=== PATIENT | female | born 1960 | race Caucasian/White ===

== ENCOUNTER 2020-08-01 15:12 | Outpatient (CLI) | payer OTHER, SELFPAY ==
--- NOTE | ~2020-08-01 | MM_ITS ---
EXAMINATION: MM screening tito BI w chelly HISTORY: Screening TECHNIQUE: Craniocaudal and mediolateral oblique 3-D tomosynthesis images were obtained and synthetic 2-D images were generated. CAD analysis was submitted and interpreted. COMPARISON: Comparison to multiple prior studies sequentially, with oldest reviewed study dated 12/03. BREAST PARENCHYMAL COMPOSITION: There are scattered areas of fibroglandular density. FINDINGS: There is no evidence of suspicious mass, calcification, or architectural distortion to sugg est malignancy in either breast. There has been no suspicious interval change. IMPRESSION: 1. No mammographic evidence of malignancy. 2. Recommend routine screening mammography in one year. BI-RADS Category 1: Negative Reviewed, dictated and finalized at location A.
== END 2020-08-01 15:13 | disposition home or self-care (01) ==
LOC: ANHIMG 15:18
PROVIDERS: PCP Emergency Medicine; Visit Provider Emergency Medicine
DX: Z12.31 Encounter for screening mammogram for malignant neoplasm of breast (principal)
CPT/HCPCS: 77063; 77067

== ENCOUNTER 2021-07-11 10:25 | Emergency (ER) | payer OTHER, SELFPAY ==
[2021-07-11 10:34] VITALS: BP 147/79; PULSE 90; RESP 16; TEMP 36.8; O2SAT 97
--- NOTE | 2021-07-11 10:41 | ED.URI ---
HPI - URI/Sore Throat General Chief Complaint: Upper Respiratory Infection Stated Complaint: SINUS CONGESTION Time Seen by Provider: 07/11/21 10:44 Source: patient, RN notes reviewed and old records reviewed Mode of arrival: ambulatory Limitations: no limitations History of Present Illness HPI Narrative: 61 year old female who presents to [facility] care with complaints of headache and sinus congestion for the past 1 month. Patient stats that she has not taken any OTC medications for her symptoms states that she is afraid to take anything OTC with the other medications she takes. Patient states that she is unsure of any fevers has had some chills and sweats, sinus congestion and drainage with pressure to her face, behind her eyes and in her forehead. Patient states that she has COPD and has cough but reports that it is not any worse than usual, continues to use tobacco daily of 1 pack of cigarettes per day. Patient denies any acute shortness of breath or any episodes of wheezing, respirations even and nonlabored. Patient reports that she has had COVID immunizations and Booster, no flu shot taken. MD elicited complaint: rhinorrhea, nasal congestion and other (headache, facial pressure) Pertinent past history: COPD Onset (ago): month(s) (1) Description of mucous: clear Able to tolerate fluids by mouth: Yes Associated symptoms: chills, myalgias, headache, rhinorrhea, nasal congestion and cough Treatments prior to arrival: none Related Data Home Medications Medication Instructions Recorded Confirmed atorvastatin 07/11/21 duloxetine mg PO 07/11/21 famotidine 07/11/21 gabapentin 07/11/21 levothyroxine 07/11/21 oxybutynin chloride 07/11/21 pantoprazole PO 07/11/21 pentosan polysulfate sodium mg 07/11/21 [Elmiron] Allergies Allergy/AdvReac Type Severity Reaction Status Date / Time No Known Allergies Allergy Unverified 01/01/15 15:41 Review of Systems Review of Systems: CONSTITUTIONAL: Unknown if fever, positive for intermittent chills, or sweats. EYES: Denies visual changes, redness, or discharge. ENT: Positive for rhinorrhea, congestion, no sore throat, or otalgia. CARDIOVASCULAR: Denies chest pain, palpitations, or edema. RESPIRATORY: Positive dry cough denies any acute dyspnea. GASTROINTESTINAL: Denies abdominal pain, nausea, vomiting, or diarrhea. GENITOURINARY: Denies dysuria or hematuria. SKIN: Denies rash or itching. MUSCULOSKELETAL: Reports chronic back pain, joint pain, or myalgia. NEUROLOGIC: Positive for headache, reports no numbness, or weakness. or any dizziness. PSYCHIATRIC: Positive for history of anxiety or depression. All systems reviewed & are unremarkable except as noted in HPI and below PMFSH Past Medical History Medical History (Updated 07/11/21 @ 11:16 by Felicity Dyson NP) COPD (chronic obstructive pulmonary disease) Fibromyalgia GERD (gastroesophageal reflux disease) Hyperlipidemia Hypothyroid Interstitial cystitis Surgical History Surgical History (Updated 07/11/21 @ 11:16 by Felicity Dyson NP) Hx of tonsillectomy Family History Family History Sibling Family history of thyroid disease Hypertension Other Family history of arthritis Family history of cardiovascular disease Social History Social History (Updated 07/11/21 @ 11:17 by Felicity Dyson NP) Smoking packs per day: 1 Smoking cigarettes per day: 20.0 Smoking status: Current every day smoker Tobacco type: cigarettes Alcohol intake: current Substance use: never Living arrangements: with family Gender identity (if verbalized by the patient): Female Comments At time of signature, agree with nursing past medical, surgical, social and family history. There is no relevant family history pertinent to the presenting complaint Exam Narrative: GENERAL: Well-appearing, well-nourished, and in no acute distress. HEAD: Normocephalic, a
== END 2021-07-11 11:10 | disposition home or self-care (01) ==
PROVIDERS: Emergency Provider Registered Nurse
DX: J01.40 Acute pansinusitis, unspecified (principal); F17.210 Nicotine dependence, cigarettes, uncomplicated; J44.9 Chronic obstructive pulmonary disease, unspecified; M79.7 Fibromyalgia; K21.9 Gastro-esophageal reflux disease without esophagitis; E78.5 Hyperlipidemia, unspecified; E03.9 Hypothyroidism, unspecified
CPT/HCPCS: 99213; G0463

== ENCOUNTER 2021-07-26 12:15 | Emergency (ER) | payer OTHER, SELFPAY ==
[2021-07-26 12:19] VITALS: BP 133/73; PULSE 77; RESP 16; TEMP 36.7; O2SAT 100
--- NOTE | 2021-07-26 12:30 | ED.URI ---
HPI - URI/Sore Throat General Chief Complaint: Upper Respiratory Infection Stated Complaint: Sinus headache. Time Seen by Provider: 07/26/21 12:30 Source: patient, RN notes reviewed and old records reviewed Mode of arrival: ambulatory Limitations: no limitations History of Present Illness HPI Narrative: 61 year old female who presents to [facility] care with complaints of continued sinus pressure, drainage and also headache pain. She reports that she completed antibiotic that was ordered for sinusitis on the 11 of July but has not taken any OTC medication of Zyrtec,Claritin or any decongestant that was recommended prior visit. Patient states that she has not taken any Tylenol or Ibuprofen either for her headache pain, denies any fevers, chills or sweats, or any body aches. Patient has been vaccinated for COVID and has had Booster but no flu shot. MD elicited complaint: rhinorrhea, nasal congestion, sinus pain and other (frontal headache) Treatments prior to arrival: other (completed oral antibiotic) Related Data Home Medications Medication Instructions Recorded Confirmed atorvastatin 40 mg PO DAILY 07/11/21 07/26/21 duloxetine 30 mg PO DAILY 07/11/21 07/26/21 famotidine 40 mg PO DAILY 07/11/21 07/26/21 gabapentin 600 mg PO BID 07/11/21 07/26/21 levothyroxine 100 mcg PO DAILY 07/11/21 07/26/21 oxybutynin chloride 5 mg PO DAILY 07/11/21 07/26/21 pantoprazole 40 mg PO DAILY 07/11/21 07/26/21 pentosan polysulfate sodium 100 mg PO DAILY 07/11/21 07/26/21 [Elmiron] Allergies Allergy/AdvReac Type Severity Reaction Status Date / Time No Known Allergies Allergy Verified 07/26/21 12:19 Review of Systems Review of Systems: CONSTITUTIONAL: Denies fever, chills, or sweats. EYES: Denies visual changes, redness, or discharge. ENT: Positive for rhinorrhea, congestion,no sore throat, or otalgia. CARDIOVASCULAR: Denies chest pain, palpitations, or edema. RESPIRATORY: Positive for dry cough denies any acute dyspnea. GASTROINTESTINAL: Denies abdominal pain, nausea, vomiting, or diarrhea. GENITOURINARY: Denies dysuria or hematuria. SKIN: Denies rash or itching. MUSCULOSKELETAL: Denies back pain, joint pain, or myalgia. NEUROLOGIC: Positive for frontal headache, no numbness, or weakness. PSYCHIATRIC: Positive for history of anxiety or depression. All systems reviewed & are unremarkable except as noted in HPI and below PMFSH Past Medical History Medical History COPD (chronic obstructive pulmonary disease) Fibromyalgia GERD (gastroesophageal reflux disease) Hyperlipidemia Hypothyroid Interstitial cystitis Surgical History Surgical History Hx of tonsillectomy Family History Family History Sibling Family history of thyroid disease Hypertension Other Family history of arthritis Family history of cardiovascular disease Social History Social History Smoking packs per day: 1 Smoking cigarettes per day: 20.0 Smoking status: Current every day smoker Tobacco type: cigarettes Alcohol intake: current Substance use: never Gender identity (if verbalized by the patient): Female Comments At time of signature, agree with nursing past medical, surgical, social and family history. There is no relevant family history pertinent to the presenting complaint Exam Narrative: GENERAL: Well-appearing, well-nourished, and in no acute distress. HEAD: Normocephalic, atraumatic. EYES: PERRLA and EOMI. ENT: Nares red with clear rhinorrhea no epistaxis. Mucous membranes moist.TM's normal with goodlight reflex, throat pink with no lesions or exudates or tonsil enlargement, some clear nasal drainage in the back of her throat with some stated sinus pressure and headache NECK: Supple. no lymphadenopathy CHEST: Clear to
== END 2021-07-26 13:02 | disposition home or self-care (01) ==
PROVIDERS: Emergency Provider Registered Nurse
DX: J06.9 Acute upper respiratory infection, unspecified (principal); F17.210 Nicotine dependence, cigarettes, uncomplicated; J44.9 Chronic obstructive pulmonary disease, unspecified; M79.7 Fibromyalgia; K21.9 Gastro-esophageal reflux disease without esophagitis; E78.5 Hyperlipidemia, unspecified; E03.9 Hypothyroidism, unspecified
CPT/HCPCS: 99213; G0463

== ENCOUNTER 2022-05-16 14:26 | Outpatient (CLI) | payer OTHER, SELFPAY ==
[2022-05-16 15:45] LABS: Influenza A QL RT-PCR Negative (Negative); Influenza B QL RT-PCR Negative (Negative); RSV RNA, RT-PCR Negative (Negative); SARS-CoV-2 RNA PCR Negative
== END 2022-05-16 14:27 | disposition home or self-care (01) ==
PROVIDERS: PCP Emergency Medicine; Visit Provider Emergency Medicine
DX: R05.9 Cough, unspecified (principal); Z20.822 Contact with and (suspected) exposure to COVID-19
CPT/HCPCS: 87637

== ENCOUNTER 2022-06-11 15:05 | Outpatient (CLI) | payer OTHER, SELFPAY ==
[2022-06-11 20:19] LABS: Hemoglobin A1C 5.3 % (<5.7)
[2022-06-11 20:24] LABS: Alanine Aminotransferase 19 U/L (6-35); Albumin Level 4.4 g/dL (3.5-5.1); Alkaline Phosphatase 102 U/L (38-126); Anion Gap 4 mmol/L (8-16); Aspartate Amino Transferase 27 U/L (14-36); Bilirubin,Total 0.5 mg/dL (0.2-1.3); Blood Urea Nitrogen 16 mg/dL (7-17); Calcium 10.6 mg/dL (8.4-10.2); Carbon Dioxide 29 mmol/L (22-30); Chloride 103 mmol/L (98-107); Cholesterol 325 mg/dL (0-200); Estimated Glomerular Filt Rate 56; Glucose 90 mg/dL (65-110); HDL Direct 54 mg/dL; Potassium 3.7 mmol/L (3.4-5.0); Sodium 136 mmol/L (137-145); Triglycerides 133 mg/dL (<150)
[2022-06-11 20:35] LABS: LDL Cholesterol Direct 190 mg/dL
[2022-06-11 20:45] LABS: Free T4 Free Thyroxine 0.86 ng/mL (0.78-2.19)
[2022-06-11 21:15] LABS: Basophils Absolute Auto 0.1 K/mm3 (0.0-0.1); Basophils Percent Auto 0.9 % (0.2-1.2); Eosinophils Absolute Auto 0.3 K/mm3 (0-0.3); Eosinophils Percent Auto 2.8 % (0-4.4); Hematocrit 43.1 % (37.0-47.0); Hemoglobin 13.5 g/dL (12.0-15.0); Immature Granulocyte Absolute 0.06 K/mm3 (0.00-0.031); Immature Granulocyte Percent A 0.6 % (0-0.5); Lymphocytes Absolute Auto 1.87 K/mm3 (0.9-3.2); Mean Corpuscular HGB Conc 31.3 g/dl (32-36); Mean Corpuscular Volume 89.4 fl (80-100); Mean Platelet Volume 10.8 fl (7.4-10.4); Monocytes Absolute Auto 0.9 K/mm3 (0.1-0.6); Monocytes Percent Auto 8.6 % (2.6-8.5); Neutrophils Absolute Auto 6.7 K/mm3 (1.3-6.7); Neutrophils Percent Auto 68.1 % (45.5-73.1); Platelet Count Result 495 k/mm3 (150-375); Red Blood Count 4.82 M/mm3 (4.2-5.4); White Blood Count 9.9 K/mm3 (4.5-10.0)
== END 2022-06-11 15:06 | disposition home or self-care (01) ==
LOC: ANHGOSHLAB 15:07
PROVIDERS: PCP Emergency Medicine; Visit Provider Emergency Medicine
DX: E78.5 Hyperlipidemia, unspecified (principal); E03.9 Hypothyroidism, unspecified; F17.200 Nicotine dependence, unspecified, uncomplicated
CPT/HCPCS: 36415; 80053; 80061; 83036; 84439; 84443; 85025

== ENCOUNTER 2022-07-02 13:31 | Outpatient (CLI) | payer OTHER, SELFPAY ==
--- NOTE | ~2022-07-02 | CT_ITS ---
EXAMINATION: CT sinus wo con DATE: 07/02/2022 13:48 INDICATION: Sinus headache TECHNIQUE: Computed tomography (CT) of the paranasal sinuses was performed without intravenous contra st. The dose-length product (DLP) was 261.91 mGy-cm. Iterative reconstruction was used. COMPARISON: None FINDINGS: There is an approximately 6.9 x 6.6 cm partially calcified extra-axial mass in the right fr ontal region which exerts mass effect on right frontal lobe, the right lateral ventricle, and partial ly erodes into the medial aspect of the right orbit. There is normal development and pneumatization o f the paranasal sinuses. The frontal, sphenoid, ethmoid, and maxillary sinuses are clear. The bilater al ostiomeatal complexes are patent. Visualized soft tissues are unremarkable. IMPRESSION: 1. 6.9 cm partially calcified extra-axial mass in the right frontal region, possible meningioma. Furt her evaluation by MRI without and with contrast is recommended. Reviewed, dictated and finalized at location L. CLERK IMPRESSION: 1. 6.9 cm partially calcified extra-axial mass in the right frontal region, pos sible meningioma. Further evaluation by MRI without and with contrast is recomm ended.
--- NOTE | ~2022-07-02 | CT_ITS ---
EXAMINATION:CT lung screening DATE: 07/02/2022 13:48 INDICATION: Tobacco abuse. Current smoker with 35 pack year history. TECHNIQUE: Computed tomography (CT) of the chest was performed without intravenous contrast. Automate d exposure control and iterative reconstruction technique were employed. The dose-length product (DLP ) was 57.70 mGy-cm. COMPARISON: Chest CT 11/27/2018, CT abdomen 05/28/2006 FINDINGS: There is moderate emphysema. There is a 3 mm nodule in right upper lobe. There is mild scar ring at the lung apices. There is mild dependent atelectasis bilaterally. No pleural effusion. The he art size is normal. No pericardial effusion. There are cysts in the kidneys measuring up to 3.8 cm on the right. There is a 1.3 cm mass in right kidney measuring soft tissue attenuation. There is mild t horacic spondylosis. IMPRESSION: 1. Lung-RADS category 2: Benign appearance or behavior. Continue annual screening with noncontrast lo w-dose chest CT in 12 months. 2. 1.3 cm right kidney mass, which may be a hemorrhagic cyst or a neoplasm. Abdomen CT without and wi th contrast is recommended. Reviewed, dictated and finalized at location A. RDING ARTIST IMPRESSION: 1. Lung-RADS category 2: Benign appearance or behavior. Continue annual screeni ng with noncontrast low-dose chest CT in 12 months. 2. 1.3 cm right kidney mass, which may be a hemorrhagic cyst or a neoplasm. Abd omen CT without and with contrast is recommended.
== END 2022-07-02 13:32 | disposition home or self-care (01) ==
LOC: ANHIMG 13:32
PROVIDERS: PCP Emergency Medicine; Visit Provider Emergency Medicine
DX: Z12.2 Encounter for screening for malignant neoplasm of respiratory organs (principal); F17.210 Nicotine dependence, cigarettes, uncomplicated; R51.9 Headache, unspecified
CPT/HCPCS: 70486; 71271

== ENCOUNTER 2022-07-16 12:02 | Outpatient (CLI) | payer OTHER, SELFPAY ==
--- NOTE | ~2022-07-16 | MR_ITS ---
MRI of the brain Clinical History: Frontal mass Technique: Axial and sagittal T1-weighted images were acquired. These were followed by axial T2-weigh beverley, diffusion weighted, gradient, and FLAIR images. Following intravenous administration of 12 cc Mu ltiHance gadolinium, T1-weighted fat-sat imaging was performed in the axial, coronal, and sagittal pl anes. Findings: There is a 7.2 x 6.5 x 7.9 cm extra-axial mass in the right frontal region, T1 hypointense, mildly T2 hyperintense, with extensive heterogeneous postcontrast enhancement. Lesion is most compat ible with large meningioma. There is extensive surrounding vasogenic edema. There is marked mass effe ct with marked compression of the right lateral ventricle, and leftward midline shift in the frontal region of up to 2.8 cm. No other parenchymal abnormality seen. No acute infarct or acute intracranial hemorrhage seen. Possib le small amount of calcification within the mass. Orbits are unremarkable. Paranasal sinuses and mastoid air cells are clear. IMPRESSION: 7.2 x 6.5 x 7.9 cm right frontal region meningioma. There is surrounding vasogenic edema and marked m ass effect, with severe compression of right lateral ventricle and leftward midline shift in the fron bo region of up to 2.8 cm. Reviewed, dictated and finalized at location M. EL PLATER IMPRESSION: 7.2 x 6.5 x 7.9 cm right frontal region meningioma. There is surrounding vasoge mellissa edema and marked mass effect, with severe compression of right lateral vent ricle and leftward midline shift in the frontal region of up to 2.8 cm.
== END 2022-07-16 12:03 | disposition home or self-care (01) ==
PROVIDERS: PCP Emergency Medicine; Visit Provider Emergency Medicine
DX: D32.9 Benign neoplasm of meninges, unspecified (principal); R93.0 Abnormal findings on diagnostic imaging of skull and head, not elsewhere classified
CPT/HCPCS: 70553; A9577

== ENCOUNTER 2022-09-16 14:33 | Outpatient (CLI) | payer OTHER, SELFPAY ==
[2022-09-16 18:15] LABS: Parathyroid Intact 80.6 pg/mL (7.5-53.5)
[2022-09-16 18:23] LABS: Erythrocyte Sedimentation Rate 125 mm/hr (0-20)
[2022-09-16 18:33] LABS: CRP 2.9 mg/dL (<1.0); Lactate Dehydrogenase 172 U/L (120-246)
[2022-09-16 18:45] LABS: Alanine Aminotransferase 17 U/L (6-35); Albumin Level 3.9 g/dL (3.5-5.1); Alkaline Phosphatase 104 U/L (38-126); Anion Gap 6 mmol/L (8-16); Aspartate Amino Transferase 25 U/L (14-36); Bilirubin,Total 0.4 mg/dL (0.2-1.3); Blood Urea Nitrogen 14 mg/dL (7-17); Carbon Dioxide 26 mmol/L (22-30); Chloride 102 mmol/L (98-107); Estimated Glomerular Filt Rate 56; Glucose 82 mg/dL (65-110); Potassium 3.9 mmol/L (3.4-5.0); Sodium 134 mmol/L (137-145)
[2022-09-25 19:27] LABS: Parathyroid Hormone Related Pr 6 pg/mL (11-20)
== END 2022-09-16 14:34 | disposition home or self-care (01) ==
LOC: ANHGOSHLAB 14:35
PROVIDERS: PCP Emergency Medicine; Visit Provider Nurse Practitioner Family
DX: E83.52 Hypercalcemia (principal); F17.200 Nicotine dependence, unspecified, uncomplicated; R53.82 Chronic fatigue, unspecified; E87.1 Hypo-osmolality and hyponatremia; N17.9 Acute kidney failure, unspecified
CPT/HCPCS: 36415; 80053; 82310; 83519; 83615; 83970; 85652; 86140

== ENCOUNTER 2022-09-27 11:51 | Outpatient (CLI) | payer OTHER, SELFPAY ==
[2022-09-27 13:09] LABS: Free T4 Free Thyroxine 1.02 ng/mL (0.78-2.19)
== END 2022-09-27 11:52 | disposition home or self-care (01) ==
LOC: ANHGOSHLAB 11:52
PROVIDERS: PCP Emergency Medicine; Visit Provider Nurse Practitioner Family
DX: E03.9 Hypothyroidism, unspecified (principal)
CPT/HCPCS: 36415; 84439; 84443

== ENCOUNTER 2023-01-03 14:53 | Outpatient (CLI) | payer OTHER, SELFPAY ==
[2023-01-03 18:25] LABS: Basophils Absolute Auto 0.1 K/mm3 (0.0-0.1); Eosinophils Absolute Auto 0.4 K/mm3 (0-0.3); Eosinophils Percent Auto 4.6 % (0-4.4); Hematocrit 43.1 % (37.0-47.0); Hemoglobin 13.5 g/dL (12.0-15.0); Immature Granulocyte Absolute 0.03 K/mm3 (0.00-0.031); Immature Granulocyte Percent A 0.3 % (0-0.5); Lymphocytes Absolute Auto 1.79 K/mm3 (0.9-3.2); Lymphocytes Percent Auto 20.6 % (18.3-44.2); Mean Corpuscular HGB Conc 31.3 g/dl (32-36); Mean Corpuscular Hemoglobin 27.4 pg (26-34); Mean Corpuscular Volume 87.6 fl (80-100); Mean Platelet Volume 10.9 fl (7.4-10.4); Monocytes Absolute Auto 0.8 K/mm3 (0.1-0.6); Monocytes Percent Auto 8.7 % (2.6-8.5); Neutrophils Absolute Auto 5.6 K/mm3 (1.3-6.7); Neutrophils Percent Auto 64.8 % (45.5-73.1); Platelet Count Result 377 k/mm3 (150-375); Red Blood Count 4.92 M/mm3 (4.2-5.4); Red Cell Distribution Width 14.6 % (11.5-14.5); White Blood Count 8.7 K/mm3 (4.5-10.0)
[2023-01-03 19:34] LABS: Alanine Aminotransferase 18 U/L (6-35); Albumin Level 4.2 g/dL (3.5-5.1); Alkaline Phosphatase 93 U/L (38-126); Anion Gap 6 mmol/L (8-16); Aspartate Amino Transferase 28 U/L (14-36); Bilirubin,Total 0.3 mg/dL (0.2-1.3); Blood Urea Nitrogen 23 mg/dL (7-17); Calcium 11.1 mg/dL (8.4-10.2); Carbon Dioxide 25 mmol/L (22-30); Chloride 106 mmol/L (98-107); Cholesterol 191 mg/dL (0-200); Estimated Glomerular Filt Rate 45; Glucose 87 mg/dL (65-110); HDL Direct 57 mg/dL; Potassium 4.1 mmol/L (3.4-5.0); Sodium 137 mmol/L (137-145); Triglycerides 82 mg/dL (<150)
[2023-01-03 19:42] LABS: LDL Cholesterol Direct 101 mg/dL
== END 2023-01-03 14:54 | disposition home or self-care (01) ==
LOC: ANHGOSHLAB 14:55
PROVIDERS: PCP Emergency Medicine; Visit Provider Nurse Practitioner Family
DX: E87.1 Hypo-osmolality and hyponatremia (principal); I25.10 Atherosclerotic heart disease of native coronary artery without angina pectoris; E83.52 Hypercalcemia; D72.829 Elevated white blood cell count, unspecified
CPT/HCPCS: 36415; 80053; 80061; 84443; 85025

== ENCOUNTER 2023-02-14 10:24 | Outpatient (CLI) | payer OTHER, SELFPAY ==
--- NOTE | ~2023-02-14 | CT_ITS ---
EXAMINATION: CT abdomen pelvis wo/w con DATE: 02/14/2023 11:07 INDICATION: Right renal mass TECHNIQUE: Computed tomography (CT) of the abdomen and pelvis was performed without and with 100 cc O mnipaque 350 intravenous contrast. The dose-length product was 509.31 mGy-cm. Automated exposure con trol and iterative reconstruction technique were employed. COMPARISON: CT dated 05/28/2006. FINDINGS: there is dependent atelectasis. Heart size normal. No significant pleural or pericardial ef fusion. There is a 1 cm exophytic right renal lesion which measures 20 Hounsfield units precontrast a nd 47 Hounsfield units postcontrast. There are bilateral renal cysts. There is emphysema. Hepatomegal y. The spleen, pancreas, adrenal glands and left kidney are unremarkable. Gallbladder is present. Non obstructive bowel gas pattern. Mild thoracic spondylosis. IMPRESSION: 1. Enhancing exophytic 1 cm right renal mass, suspicious for renal cell carcinoma. Consider correlati on with MRI without and with contrast. 2: Hepatomegaly. Reviewed, dictated and finalized at location B. IMPRESSION: 1. Enhancing exophytic 1 cm right renal mass, suspicious for renal cell carcino ma. Consider correlation with MRI without and with contrast. 2: Hepatomegaly.
[2023-02-14 10:59] LABS: Estimated Glomerular Filt Rate 41
== END 2023-02-14 10:25 | disposition home or self-care (01) ==
PROVIDERS: PCP Emergency Medicine; Visit Provider Emergency Medicine
DX: R16.0 Hepatomegaly, not elsewhere classified (principal); N28.89 Other specified disorders of kidney and ureter
CPT/HCPCS: 74178; Q9967

== ENCOUNTER 2023-06-17 14:19 | Outpatient (CLI) | payer OTHER, SELFPAY ==
--- NOTE | ~2023-06-17 | MM_ITS ---
EXAMINATION: MM screening tito BI w chelly HISTORY: Screening TECHNIQUE: Craniocaudal and mediolateral oblique 3-D tomosynthesis images were obtained and synthetic 2-D images were generated. CAD analysis was submitted and interpreted. COMPARISON: No prior mammogram is available for comparison at this institution. BREAST PARENCHYMAL COMPOSITION: There are scattered areas of fibroglandular density. FINDINGS: There is no evidence of suspicious mass, calcification, or architectural distortion to sugg est malignancy in either breast. There has been no suspicious interval change. IMPRESSION: 1. No mammographic evidence of malignancy. 2. Recommend routine screening mammography in one year. BI-RADS Category 1: Negative Reviewed, dictated and finalized at location A. O COORDINATOR
== END 2023-06-17 14:20 | disposition home or self-care (01) ==
PROVIDERS: PCP Emergency Medicine; Visit Provider Physician Assistant
DX: Z12.31 Encounter for screening mammogram for malignant neoplasm of breast (principal)
CPT/HCPCS: 77063; 77067

== ENCOUNTER 2023-07-01 14:04 | Outpatient (CLI) | payer OTHER, SELFPAY ==
[2023-07-01 20:31] LABS: Albumin Level 4.2 g/dL (3.5-5.1); Anion Gap 6 mmol/L (8-16); Blood Urea Nitrogen 19 mg/dL (7-17); Calcium 11.3 mg/dL (8.4-10.2); Carbon Dioxide 27 mmol/L (22-30); Chloride 108 mmol/L (98-107); Estimated Glomerular Filt Rate 56; Glucose 90 mg/dL (65-110); Phosphorus 3.5 mg/dL (2.5-4.5); Potassium 4.1 mmol/L (3.4-5.0); Sodium 141 mmol/L (137-145)
[2023-07-01 21:04] LABS: Total Triiodothyronine (T3) 1.26 NG/ML (0.97-1.69)
[2023-07-01 23:48] LABS: Free T4 Free Thyroxine 1.07 ng/mL (0.78-2.19)
== END 2023-07-01 14:05 | disposition home or self-care (01) ==
LOC: ANHGOSHLAB 14:05
PROVIDERS: PCP Emergency Medicine; Visit Provider Emergency Medicine
DX: E03.9 Hypothyroidism, unspecified (principal); N18.9 Chronic kidney disease, unspecified
CPT/HCPCS: 36415; 80069; 84439; 84443; 84480

== ENCOUNTER 2023-09-19 14:04 | Outpatient (CLI) | payer OTHER, SELFPAY ==
[2023-09-19 20:30] LABS: Alanine Aminotransferase 16 U/L (6-35); Albumin Level 4.4 g/dL (3.5-5.1); Alkaline Phosphatase 107 U/L (38-126); Anion Gap 5 mmol/L (4-12); Aspartate Amino Transferase 26 U/L (14-36); Bilirubin,Total 0.5 mg/dL (0.2-1.3); Blood Urea Nitrogen 17 mg/dL (7-17); Calcium 10.9 mg/dL (8.4-10.2); Carbon Dioxide 26 mmol/L (22-30); Chloride 108 mmol/L (98-107); Estimated Glomerular Filt Rate 45; Glucose 94 mg/dL (65-110); Potassium 3.7 mmol/L (3.4-5.0); Sodium 139 mmol/L (137-145)
[2023-09-19 20:33] LABS: Parathyroid Intact 72.7 pg/mL (7.5-53.5)
[2023-09-20 15:48] LABS: Ionized Calcium 5.7 mg/dL (4.7-5.5)
[2023-09-26 15:08] LABS: Parathyroid Hormone Related Pr 13 pg/mL (11-20)
== END 2023-09-19 14:05 | disposition home or self-care (01) ==
LOC: ANHGOSHLAB 14:05
PROVIDERS: PCP Emergency Medicine; Visit Provider Emergency Medicine
DX: E83.52 Hypercalcemia (principal)
CPT/HCPCS: 36415; 80053; 82330; 83519; 83970

== ENCOUNTER 2024-09-03 15:06 | Outpatient (CLI) | payer MEDICARE, SELFPAY ==
--- NOTE | ~2024-09-03 | MM_ITS ---
EXAMINATION: MM screening tito BI w chelly HISTORY: Screening TECHNIQUE: Craniocaudal and mediolateral oblique 3-D tomosynthesis images were obtained and synthetic 2-D images were generated. CAD analysis was submitted and interpreted. COMPARISON: Comparison to multiple prior studies sequentially, with oldest reviewed study dated 09/2014. BREAST PARENCHYMAL COMPOSITION: Not dense: There are scattered areas of fibroglandular density. FINDINGS: There is no evidence of suspicious mass, calcification, or architectural distortion to sugg est malignancy in either breast. There has been no suspicious interval change. IMPRESSION: 1. No mammographic evidence of malignancy. 2. Recommend routine screening mammography in one year. BI-RADS Category 1: Negative Reviewed, dictated and finalized at location B.
--- OUTSIDE RECORDS SUMMARY | 2024-09-03 15:11 | XMS_ITS | Clinical Summary ---
Author Organization [facility] Address [address] [place] [id number] Care Team Providers Care Manager Risk Name Role Phone Unavailable Primary Care Provider Unavailabl e Social History Tobacco Use Types Packs/Day Years Used Date Smoking Tobacco: Never Assessed Comments Unknown Sex and Gender Information Value Date Recorded Sex Assigned at Not on file Legal Sex Female 6:24 PM CDT Gender Identity Not on file Sexual Orientation Not on file Last Filed Vital Signs Vital Sign Reading Time Taken Comments Blood Pressure 122/64 02/14/2015 10:42 AM CDT Pulse - - Temperature - - Respiratory Rate - - Oxygen Saturation - - Inhaled Oxygen Concentration - - Weight 70.3 kg (155 lb) 02/14/2015 10:42 AM CDT Height 165.1 cm (5' 5 ) 02/14/2015 10:42 AM CDT Body Mass Index 25.79 02/14/2015 10:42 AM CDT Plan of Treatment Health Maintenance Due Date Last Done Comments Colorectal Cancer Screening Colonoscopy (10 Years) 1959 Hepatitis C 1977 DTaP, Tdap and Td Vaccines ( 1 - Tdap) 1978 Mammogram Screening 1999 Zoster Vaccines (1 of 2) 2009 COVID-19 Vaccine ( - 2023-2 5 season) 2024 Dexa Scan (General) 01/18/2024 Pneumococcal Vaccine: 50+ Ye ars (1 of 1 - PCV) 01/18/2024 RSV Immunization or 60+ Years (1 - 1-dose 75+ series) 2034 Meningococcal B Vaccine Aged Out No l onger eligible based on patient's age to complete this topic Meningococcal Vaccine Aged Out No frida gabriel eligible based on patient's age to complete this topic Pneumococcal Vaccine: Pediat rics (0 to 5 Years) and At-Risk Patients (6 to 49 Years) Aged Out No longer eligible b ased on patient's age to complete this topic RSV Immunizations Under 20 Months Aged Out No longer eligible based on patient's age to complete this topic
--- OUTSIDE RECORDS SUMMARY | 2024-09-03 15:11 | XMS_ITS | Referral Summary ---
Author Organization [facility] al Address [address] [place] [address] Care Team Providers Care Ruching Machine Operator Name Role Phone Niles Sanders MD Primary Care Provider [phone] Juan Manuel Nunez MD Unavailable Encounters Date Type Department Care Team Description 07/06/[address] [facility] [address], [address] [place] [address] Lee Sarah MD Meningioma (HCC) (Primary Dx) 07/05/[address] [facility] Scheduling [address] [place] [address] Yamilex Vasquez from Last 3 Months Allergies No known active allergies Medications levothyroxine (SYNTHROID, LEVOTHROID) 25 mcg tablet take 1 tablet by oral route every day 0 0 4 Active Additional Information Patient taking differently: 50 mcg oral Every morning, Reported on 09/26/2022 rizatriptan (MAXALT) 10 mg tablet take 1 tablet by oral route once, may repeat at 2 hour intervals; do not exceed 30 mg in 24 hours 0 0 4 Active Additional Information Patient taking differently:10 mgoral Once as needed (for prescriptions), migraine, Reported on 08/16/2022 atorvastatin (LIPITOR) 40 mg tablet Take 1 tablet (40 mg total) by mouth nightly at bedtime 03/10/202 3 Active calcium carbonate (TUMS) 500 mg (200 mg elemental) chewable tabletIndicatio ns:Heartburn Take 4 tablet/chew tab (2,000 mg total) by mouth 3 (three) times a day Active acetaminophen (TYLENOL) 325 mg tabletIndicatio ns:Fever,Pain Take 2 tablets (650 mg total) by mouth every 4 (four) hours as needed for pain 30 tablet 3 Active busPIRone (BUSPAR) 5 mg tablet Take 1 tablet (5 mg total) by mouth 2 (two) times a day Active pregabalin (LYRICA) 75 mg capsule Take 1 capsule (75 mg total) by mouth 2 (two) times a day [address] (PROTONIX) 40 mg EC tablet Take 1 tablet (40 mg total) by mouth daily 4 Active traZODone (DESYREL) 100 mg tablet Take 1 tablet (100 mg total) by mouth nightly at bedtime 4 Active levothyroxine (SYNTHROID) 50 mcg tablet TAKE 1 TABLET BY MOUTH DAILY AT 6.30 AM 4 Active Active Problems Problem Noted Date Diagnosed Date Meningioma 11/04/2022 Cancer Staging:Clinical stage from 08/27/2022:WHO G2- Signed by Dominga Tuttle MD PhD on 11/04/2022 Cranial nerve IV palsy, 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 Pt was seen by inpatient consults service while admitted. Prism measurements in clinic 09/29/2022 consistent with CN4 palsy. Assessment & Plan (12/27/2022 12:56 PM CDT): Symptoms resolved today; full motility on exam. Okay to follow locally for routine eye care. RTC PRN. Assessment & Plan (09/29/2022 11:41 PM CDT): --Prism measurements consistent with CN IV palsy, which presented w/ binocular diplopia following tumor resection in 08/2022. Pt was seen by inpatient consults service while admitted. Visual acuity remains intact. --Ok to patch if patient prefers/helpful with controlling symptoms of binocular diplopia --Can consider prisms in the future, though healing may occur in interim --Will repeat anterior exam, prism measurements in 2-3 months at next visit Brain tumor 08/07/2022 Overview (08/07/2022): Added automatically from request for surgery [id number] COPD (chronic obstructive pulmonary disease) 08/2020 Overview (07/19/2022): Last Assessment & Plan: Condition: stable Reviewed trigger avoidance and reviewed proper use of inhalers and rescue medications. Pt has not been rx'd inhaler and advise to f/u with pcp. Reviewed concerning signs/symptoms and ER precautions. Follow up in: one month Generalized pain 06/22/2020 Overview (07/19/2022): Last Assessment & Plan: Condition: stable Mostly in joints but states she feels pain everywhere . Follow up in: three months GERD (gastroesophageal reflux disease) Overview (07/19/2022): Last Assessment & Plan: Condition: stable Reviewed use of antacid medication and/or diet modifications of decreasing caffeine, spicy foods, chocolate, and avoiding alcohol, tobacco, NSAIDs, and reducing citrus acids. Follow up in: six months Hyperlipidemia 06/22/2020 Overview (07/19/2022): Last Assessment & Plan: Condition: stable Discussed with Oralia behavior modifications to include choosing healthier options for foods and avoiding foods fast foods or foods that are fried, high in trans fats or preservatives. Oralia encouraged to maintain medication compliance and to increase their current level of exercise activity to 3- 4 times weekly. Oralia verbalized understanding and advised to keep all scheduled appointments. Follow up in: three months Major depressive disorder 06/22/2020 Overview (07/19/2022): Last Assessment & Plan: Condition: stable Never seen mental health provider. Condition managed by PCP Medications: Taking medications as prescribed If taking medications, do not stop treatment without consulting healthcare provider. If symptoms worsen or do not improve/stabilize, notify health care provider right away. If thoughts of harming self or others notify health care provider immediately &/or seek urgent/emergent care including calling Suicide Hotline ( ) or 911. Follow up in three months with PCP Major depressive disorder, recurrent, mild 06/22 Overview (07/19/2022): F33.0 - Psychiatric - medium low Added by Interface Migraine 06/22/2020 Overview (07/19/2022): Last Assessment & Plan: Condition: stable Follow up in: six months or prn Hypothyroid 06/22/2020 Overview (07/19/2022): Last Assessment & Plan: Condition: stable Oralia reports compliance with prescribed medication. Oralia denies the following symptoms: weight gain, bradycardia, fatigue, developing coarse or thin hair, cold intolerance or constipation etc. Member encouraged to keep all scheduled appointments. Follow up in: three months Presence of intraocular lens 01/25/2020 Overview (07/19/2022): Z96.1 - Eye - very low Added by Interface Thrombocytosis 08/26/2019 Hypothyroidism 12/27/2013 Overview (08/23/2016): Hypothyroidism Chronic interstitial cystitis 12/27/2013 Overview (08/23/2016): Interstitial cystitis Social History Tobacco Use Types Packs/Day Years Used Date Smoking Tobacco: Former Cigarettes 1 977 - 08/27/2022 Passive Smoke Exposure: Never Smokeless Tobacco: Never Tobacco Cessation:Counseling Given: Not Answered Alcohol Use Standard Drinks/Week Comments No 0 (1 standard drink = 0.6 oz pur e alcohol) AUDIT-C Answer Date Recorded Q1: How often do you have a drink containing alcohol? Never 12/16/2022 Q2: How many drinks containi ng alcohol do you have on a typical day when you are drinking? Patient does not drink Q3: How often do you have si x or more drinks on one occasion? Never 12/16/2022 Personal Safety Answer Date Recorded Have you ever been in or are you currently in a harmful physical or emotional relationship or is someone making you feel afraid or unsafe? 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 Gender Identity Female 09/21/2022 6:44 PM CDT Sexual Orientation Straight 09/21/2022 6: 44 PM CDT Last Filed Vital Signs Vital Sign Reading Time Taken Comments Blood Pressure 135/90 10/01/2023 2:43 PM CDT Pulse 89 10/01/2023 2:43 PM CDT Temperature 37.1 C (98.8 F) 04/01/2023 11:37 AM PLASTIC STRAIGHTENING ROLL OPERATOR Respiratory Rate 18 10/01/2023 2:43 PM CDT Oxygen Saturation 95% 10/01/2023 2:43 PM CDT room air Inhaled Oxygen Concentration - - Weight 68 kg (150 lb) 04/02/2024 11:58 AM PLASTIC STRAIGHTENING ROLL OPERATOR Height 157.5 cm (5' 2 ) 04/02/2024 11:58 AM PLASTIC STRAIGHTENING ROLL OPERATOR Body Mass Index 27.44 04/02/2024 11:58 AM PLASTIC STRAIGHTENING ROLL OPERATOR Plan of Treatment Not on file Medical Devices Implanted Type [facility] Counselor Device Identifier Shelf Expiration Date Model / Serial / Lot [place] Craniomaxillofacial Un3 1.5mm 4mm Self Drill Craniomaxillofacial Screw Bone [id number] - [id number] Implanted:Qty: 35 on 08/27/2022 by Lee Sarah MD at [facility] N/A: Cranial [place] Craniomaxillofacial [id number] / / [place] Craniomaxillofacial Medpor 7mm Tab Low Profile Cover Ghislaine Hole Titanium Sterile [id number] - [id number] Implanted:Qty: 4 on 08/27/2022 by Lee Sarah MD at [facility] N/A: Cranial [place] Craniomaxillofacial [id number] / / [place] Craniomaxillofacial [place] Neuro Iii .4mm 2 Hole Low Profile Bar Tab [id number] - [id number] Implanted:Qty: 2 on 08/27/2022 by Lee Sarah MD at [facility] N/A: Cranial [place] Craniomaxillofacial [id number] / / [place] Craniomaxillofacial [place] Neuro Iii 10mm Tab Craniomaxillofacial Low Profile [id number] - [id number] Implanted:Qty: 2 on 08/27/2022 by Lee Sarah MD at [facility] N/A: Cranial [place] Craniomaxillofacial [id number] / / Procedures Procedure Name Priority Date/Time Associated Diagnosis Comments CT LUNG CANCER SCREENING Schedule Routine, Read Routine (OP Routine) 10/14/2023 9:53 AM CDT Nicotine dependence, cigarettes, uncomplicated from Last 3 Months or Most Recently Relevant to Health Maintenance Results * CT Lung Cancer Screening (10/14/2023 9:53 AM CDT) Anatomical Region Laterality Modality Chest N/A Computed Tomogra phy 10/14/2023 10:0 8 AM CDT Impressions 10/14/2023 10:08 AM CDT LungRADS Category 2 (benign). Recommend Low dose Screening CT of chest in 12 months. LungRADS Categories: 1 - Negative (no nodules, or only benign calcified or fat-containing nodules) 2 - Benign Appearance or Behavior (nodules with very low likelihood of becoming a clinically active cancer due to size or lack of growth) 3 - Probably Benign (probably benign findings-short term follow up suggested; includes nodules with a low likelihood of becoming a clinically active cancer) 4A,4B,4X - Suspicious (category 3 or 4 nodules with findings for which additional diagnostic testing and/or tissue sampling is recommended) S - Other (clinically significant or potentially clinically significant findings (non-lung cancer) C - Prior Lung Cancer (modifier for patients with a prior diagnosis of lung cancer who return to screening) Electronically signed by: Sheyla Blount M.D. Narrative 10/14/2023 10:08 AM CDT EXAMINATION: Lung cancer screening CT of the Chest without intravenous contrast HISTORY: Lung Cancer Screening TECHNIQUE: Low radiation dose chest protocol. No intravenous contrast. Reconstructed slice width 1.[address] Dose Index 0.87 mGy. Dose-length product 30.2 mGy-cm. COMPARISON: None. FINDINGS: Lung nodules or findings of lung cancer: Solid 2 mm nodule in the periphery of the left upper lobe (TP 52.3). Smoking related lung disease: Severe emphysema. Other findings: Linear soft tissue thickening in the left lung base favored to represent scarring. Mass-like consolidation with central cavitation in the posterior basilar right lower lobe likely represents a combination of subsegmental atelectasis, scarring, and either a small bulla or pneumatocele. Trace pericardial fluid. Right renal cyst. Procedure Note Sheyla Blount MD - 10/14/2023 EXAMINATION: Lung cancer screening CT of the Chest without intravenous contrast HISTORY: Lung Cancer Screening TECHNIQUE: Low radiation dose chest protocol. No intravenous contrast. Reconstructed slice width 1.[address] Dose Index 0.87 mGy. Dose-length product 30.2 mGy-cm. COMPARISON: None. FINDINGS: Lung nodules or findings of lung cancer: Solid 2 mm nodule in the periphery of the left upper lobe (TP 52.3). Smoking related lung disease: Severe emphysema. Other findings: Linear soft tissue thickening in the left lung base favored to represent scarring. Mass-like consolidation with central cavitation in the posterior basilar right lower lobe likely represents a combination of subsegmental atelectasis, scarring, and either a small bulla or pneumatocele. Trace pericardial fluid. Right renal cyst. IMPRESSION: LungRADS Category 2 (benign). Recommend Low dose Screening CT of chest in 12 months. LungRADS Categories: 1 - Negative (no nodules, or only benign calcified or fat-containing nodules) 2 - Benign Appearance or Behavior (nodules with very low likelihood of becoming a clinically active cancer due to size or lack of growth) 3 - Probably Benign (probably benign findings-short term follow up suggested; includes nodules with a low likelihood of becoming a clinically active cancer) 4A,4B,4X - Suspicious (category 3 or 4 nodules with findings for which additional diagnostic testing and/or tissue sampling is recommended) S - Other (clinically significant or potentially clinically significant findings (non-lung cancer) C - Prior Lung Cancer (modifier for patients with a prior diagnosis of lung cancer who return to screening) Electronically signed by: Sehyla Blount M.D. 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
--- OUTSIDE RECORDS SUMMARY | 2024-09-03 15:11 | XMS_ITS | Clinical Summary ---
Author Organization [facility] Address [address] [place] [address] Care Team Providers Care Electrician Telephone Name Role Phone Titus Gamboa MD Primary Care Provider [phone] Source Comments [facility],non-owned Affiliates and Associated Physician Practices is amultiple site organization consisting of ambulatory clinics and hospital sitesin [place], [place], [place] and [place]. This disclosure is being madepursuant to the Care Everywhere program and may not contain all information available regarding this patient. Last updated 18.[facility] Allergies No known active allergies Medications * Be aware that medications may not be up to date on this document. Alwaysverify current medications with the patient. gabapentin (NEURONTIN) 300 MG capsule TK 2 CS PO TID 9 Active levothyroxine (SYNTHROID) 100 MCG tablet TK 1 T PO QD 9 Active [place]-3 Fatty Acids (PA FISH OIL) 1000 MG Active DULoxetine HCl 30 MG CSDR Active cycloSPORINE modified (NEORAL) 100 MG capsule Take 100 mg by mouth 2 times daily Active Cholecalciferol (VITAMIN D3 PO) Acti ve famotidine (PEPCID) 40 MG tablet Take 40 mg by mouth 0 Active atorvastatin (LIPITOR) 40 MG tablet atorvastatin 40 mg tablet TK 1 T PO QD 0 Active famotidine (PEPCID) 40 MG tablet 1 Active rizatriptan (MAXALT) 10 MG tablet rizatriptan 10 mg tablet 0 Active pentosan polysulfate sodium (ELMIRON) 100 MG capsuleIndicati ons:Interstitia l Cystitis Take 1 (one) capsule by mouth once daily Reasons: Chronic Bladder Wall Inflammation 30 capsule 11 1 Active oxybutynin (DITROPAN) 5 MG tabletIndicatio ns:Urinary Urgency Take 1 (one) tablet by mouth 3 times daily Reasons: Urinary Urgency 180 tablet 4 1 Active Active Problems No known active problems Family History Medical History Relation Name Comments CAD (Coronary Artery Disease) Maternal Grandfather CAD (Coronary Artery Disease) Mother ? [place] Osteoporosis Mother CAD (Coronary Artery Disease) Sister 1 Osteoporosis Sister 1 Thyroid Disease Sister 1 Relation Name Status Comments Father Alive Maternal Grandfather Maternal Grandmother Mother Paternal Grandfather Paternal Grandmother Sister 1 Alive Sister 2 Alive Sister 3 Alive Social History Tobacco Use Types Packs/Day Years Used Date Smoking Tobacco: Some Days Smokeless Tobacco: Never Alcohol Use Standard Drinks/Week Comments Never 0 (1 standard drink = 0.6 oz pur e alcohol) AUDIT-C Answer Date Recorded Frequency of Alcohol Consumption Never 05/20/2019 Average Number of Drinks Not on file 020 Frequency of Binge Drinking Not on file 06/2019 Comments Unknown Sex and Gender Information Value Date Recorded Sex Assigned at Not on file Legal Sex 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 Gender Identity Not on file Sexual Orientation Not on file Last Filed Vital Signs Vital Sign Reading Time Taken Comments Blood Pressure 128/83 03/09/2021 2:07 PM CDT Pulse 85 03/09/2021 2:07 PM CDT Temperature 37.2 C (98.9 F) 03/09/2021 2:07 PM CDT Respiratory Rate - - Oxygen Saturation 97% 03/09/2021 2:07 PM CDT Inhaled Oxygen Concentration - - Weight 66.7 kg (147 lb) 03/09/2021 2:07 PM CDT Height 157.5 cm (5' 2 ) 03/09/2021 2:07 PM CDT Body Mass Index 26.89 03/09/2021 2:07 PM CDT Plan of Treatment Health Maintenance Due Date Last Done Comments BONE DENSITY TESTING 1959 ROBERT (AGES 45-75) - COL ON CA SCREENING 1959 COLON MONITORING 1959 COLONOSCOPY - COLON CA SCREENING 1959 CT COLONOGRAPHY - COLON CA SCREENING 1959 Colorectal Cancer Screening 1959 FIT - COLON CA SCREENING 1959 FLEX SIG - COLON CA SCREENING 1959 MAMMOGRAM 1959 HIV SCREENING 1974 HEPATITIS C SCREENING 01/12/1977 DTAP/TDAP/TD VACCINES (1 - Tdap) 1978 PNEUMOCOCCAL VACCINE 50+ (1 of 1 - PCV) 2009 ZOSTER VACCINE (1 of 2) 2009 SCREENING FOR DIABETES 03/09/2021 COVID-19 VACCINE (1 - 2023-2 5 season) 2024 DEPRESSION SCREENING 05/19/2024 INFLUENZA VACCINE (Season Ended) 2025 Respiratory Syncytial Virus (RSV) Vaccine Pt: or over 60 yrs (1 - 1-dose 75+ series) 2034 HEPATITIS B VACCINE Aged Out No longe r eligible based on patient's age to complete this topic HIB VACCINE Aged Out No longer eligi ble based on patient's age to complete this topic HPV VACCINE Aged Out No longer eligi ble based on patient's age to complete this topic MENINGOCOCCAL (Group B) VACC INE SHARED DECISION-MAKING Aged Out No longer eligibl e based on patient's age to complete this topic MENINGOCOCCAL GROUPS A/C/Y/W VACCINE Aged Out No longer eligible b ased on patient's age to complete this topic Insurance [facility] Care Teams Electrician Telephone Relationship Specialty Start Date End Date Titus Gamboa MD [facility] - General 05/20/19
--- OUTSIDE RECORDS SUMMARY | 2024-09-03 15:11 | XMS_ITS | Continuity of Care Document ---
Author Organization [facility] Address [address] [place] [address] [place] [address] Phone Care Team Providers Care Wheelage Clerk Name Role Phone Titus Gamboa MD Unavailable Unavailable Allergies, Adverse Reactions, Alerts Substance Reaction Status Criticality No Known Allergies Active No Inform ation Medications Medication Instructions Dosage Effective Dates (start - stop) Status Comments Lipitor 40 mg tablet take 1 tablet by oral route every day 40 MG - Active Maxalt 10 mg tablet take 1 tablet by oral route once, may repeat at 2 hour intervals; do not exceed 30 mg in 24 hours 10 MG - Active Cymbalta 30 mg capsule,delayed release take 1 capsule by oral route every day 30 MG - Active Neurontin 300 mg capsule take 2 capsule by oral route 2 times every day 600 MG - Active Synthroid 100 mcg tablet take 1 tablet by oral route every day 100 MCG - Active Vitamin D2 1,250 mcg (50,000 unit) capsule take one capsule orally once per week - Active Pepcid 40 mg tablet take 1 tablet by oral route every day 40 MG - Active Ultram 50 mg tablet take 1 tablet by oral route every 6 hours as needed as needed - Active PRN For pain, avoid driving or operate machines Elmiron 100 mg capsule take 1 capsule (100MG) by oral route 3 times every day with water, 1 hour before or 2 hours after a meal 100 MG - Active Procedures Procedure Date OFFICE/OUTPATIENT VISIT, EST OFFICE/OUTPATIENT VISIT, EST OFFICE/OUTPATIENT VISIT, EST OFFICE/OUTPATIENT VISIT, EST OFFICE/OUTPATIENT VISIT, EST OFFICE/OUTPATIENT VISIT, EST PREV VISIT, EST, AGE 40-64 OFFICE/OUTPATIENT VISIT, EST OFFICE/OUTPATIENT VISIT, EST OFFICE/OUTPATIENT VISIT, EST OFFICE/OUTPATIENT VISIT, EST OFFICE/OUTPATIENT VISIT, EST OFFICE/OUTPATIENT VISIT, EST OFFICE/OUTPATIENT VISIT, EST PREV VISIT, EST, AGE 40-64 OFFICE/OUTPATIENT VISIT, EST OFFICE/OUTPATIENT VISIT, EST OFFICE/OUTPATIENT VISIT, EST OFFICE/OUTPATIENT VISIT, EST OFFICE/OUTPATIENT VISIT, EST OFFICE/OUTPATIENT VISIT, EST PREV VISIT, EST, AGE 40-64 OFFICE/OUTPATIENT VISIT, EST OFFICE/OUTPATIENT VISIT, EST OFFICE/OUTPATIENT VISIT, EST OFFICE/OUTPATIENT VISIT, EST OFFICE/OUTPATIENT VISIT, EST OFFICE/OUTPATIENT VISIT, EST PREV VISIT, EST, AGE 40-64 OFFICE/OUTPATIENT VISIT, EST URINALYSIS NONAUTO W/O SCOPE OFFICE/OUTPATIENT VISIT, EST OFFICE/OUTPATIENT VISIT, EST Advance Directives Directive Yes / No Effective Date File Name No Information Encounters Encounter Description Practice Location Reason(s) For Visit Diagnoses Date Provider Providers Copied on Encounter OFFICE/OUTPA TIENT VISIT, EST [facility], [address] [place], [place] [address]viridiana R[facility]Est[facility], [address], [place] tel:[phone] [facility] anxiety1 (chief complaint)migra ine (chief complaint)migra ine1 (chief complaint)GERD1 (chief complaint)HLP (chief complaint)IC (chief complaint) Generalized Anxiety DisorderFibrom yalgiaHyperlip idemiaIntersti tial cystitis (chronic) without hematuriaMigra ineTobacco useGERD w/o esophagitis 1 Cooper Aquino [address], [place], [place], [address] , [place]. tel:[phone] [facility], [address], [place], [place], [address], [place] tel:[phone] [facility] No Information 1 Cooper Aquino [address], [address], [place], [place], [address] , [place]. tel:[phone] OFFICE/OUTPA TIENT VISIT, [facility], [place], [address] [place], [address], [place] tel:[phone] [facility] platelet1 (chief complaint)hypot hyroidism1 (chief complaint)calci um1 (chief complaint)renal (chief complaint)osteo penia1 (chief complaint)insom nia1 (chief complaint) InsomniaOther specified disorder of bone densityLeukocy tosisHypercalc emiaRenal diseaseHypothy roidismTobacco useEncounter for oth screening for malignant neoplasm of breast 0 Cooper Qureshi. [address] [facility] [address], [place], [place], [address] , [place]. tel:[phone] OFFICE/OUTPA TIENT VISIT, [facility], [place], [address] [place], [place], [address], [place] tel:[phone] [facility] insomnia1 (chief complaint)anxie ty1 (chief complaint) InsomniaGenera lized Anxiety Disorder 0 Cooper Qureshi. [address], [place], [place], [address] , [place]. tel:[phone] OFFICE/OUTPA TIENT VISIT, [facility], [place], [address], [address], [place] tel:[phone] [facility] UTI1 (chief complaint) Urinary tract infectionInter stitial cystitis (chronic) without hematuria 0 Cooper Qureshi. [address], [place], [place], [address] , [place]. tel:[phone] OFFICE/OUTPA TIENT VISIT, EST [facility], [address], [place], [place], [address], [place] tel:[phone] [facility] IC (chief complaint)fibro myalgia1 (chief complaint) FibromyalgiaIn terstitial cystitis (chronic) without hematuria Sep-3 0 0 Cooper Qureshi. [address], [place], [place], [address] , [place]. tel:[phone] [facility], [address], [place], [place], [address], [place] tel:[phone] [facility] No Information 0 Cooper Aquino [address], [address], [place], [place], [address] , [place]. tel:[phone] OFFICE/OUTPA TIENT VISIT, EST [facility], [address], [place], [place], [address], [place] tel:[phone] [facility] sinus infection (chief complaint)sinus infection1 (chief complaint) Acute sinusitis 0 Cooper Aquino [address], [address], [place], [place], [address] , [place]. [phone] Referring Provider: Jesse Cannon [address], [place], [place], [address]. tel:[phone] PREV VISIT, EST, AGE 40-64 [facility], [address], [place], [place], [address], [place] tel:[phone] [facility] physical (chief complaint) Encntr for general adult medical exam w/o abnormal findings 0 0 Cooper Qureshi. [address], [place], [place], [address] , [place]. tel:[phone] Referring Provider: Titus Gamboa [address], [place], [place], [address]. tel:[phone] OFFICE/OUTPA TIENT VISIT, [facility], [place], [address], [place], [place], [address], [place] tel:[phone] [facility] HLP (chief complaint)high platelet1 (chief complaint)GERD1 (chief complaint)thyro id (chief complaint) GERD w/o esophagitisEss ential thrombocytosis Hyperlipidemia Hypothyroidism Fibromyalgia 9 Cooper Qureshi. [address], [address], [place], [place], [address] , [place]. tel:[phone] Referring Provider: Jesse Cannon [address], [place], [place], [address]. tel:[phone] OFFICE/OUTPA TIENT VISIT, [facility], [place], [address], [place], [place], [address], [place] tel:[phone] [facility] sinus1 (chief complaint) Acute sinusitis 9 Cooper Qureshi. [address], [place], [place], [address] , [place]. tel:[phone] Referring Provider: Jesse Cannon [address], [place], [place], [address]. tel:[phone] OFFICE/OUTPA TIENT VISIT, [facility], [place], [address], [place], [place], [address], [place] tel:[phone] [facility] HLP (chief complaint)hemat uria1 (chief complaint)osteo penia1 (chief complaint)throm bocytosis1 (chief complaint)GERD1 (chief complaint) GERD w/o esophagitisTob acco useOther specified disorder of bone densityEssenti al thrombocytosis Hyperlipidemia Hematuria 9 Cooper Qureshi. [address], [place], [place], [address] , [place]. tel:[phone] Referring Provider: Jesse Cannon [address], [place], [place], [address]. tel:[phone] OFFICE/OUTPA TIENT VISIT, [facility], [place], [address], [place], [place], [address], [place] tel:[phone] [facility] anxiety1 (chief complaint)HLP (chief complaint)thyro id1 (chief complaint)GERD1 (chief complaint) GERD w/o esophagitisHyp othyroidismHyp erlipidemiaGen eralized Anxiety DisorderTobacc o use 9 Cooper Qureshi. [address], [address], [place], [place], [address] , [place]. tel:[phone] Referring Provider: Jesse Cannon [address], [place], [place], [address]. tel:[phone] OFFICE/OUTPA TIENT VISIT, [facility], [place], [address] [place], [address], [place] tel:[phone] [facility] GERD1 (chief complaint)HLP (chief complaint)bone density (chief complaint)colon oscopy1 (chief complaint)copd1 (chief complaint) FibromyalgiaGE RD w/o esophagitisEnc ounter for screening for osteoporosisHy perlipidemiaEm physema 9 Cooper Qureshi. [address], [address], [place], [place], [address] , [place]. tel:[phone] Referring Provider: [facility] [place], [place], [address]. tel:[phone] OFFICE/OUTPA TIENT VISIT, [facility], [place], [address] [place], [address], [place] tel:[phone] [facility] HLP (chief complaint)colit is1 (chief complaint)thyro idism1 (chief complaint)catar act1 (chief complaint) Hypothyroidism Hyperlipidemia CataractColiti sOther chronic cystitis without hematuria 9 Cooper Qureshi. [address], [place], [place], [address] , [place]. tel:[phone] Referring Provider: Jesse Cannon [address], [place], [place], [address]. tel:[phone] OFFICE/OUTPA TIENT VISIT, [facility], [place], [address], [place], [place], [address], [place] tel:[phone] [facility] sinus1 (chief complaint) Acute sinusitis 8 Cooper Aquino [address], [place], [place], [address] , [place]. [phone] Referring Provider: Jesse Cannon [address], [place], [place], [address]. tel:[phone] PREV VISIT, EST, AGE 40-64 [facility], [address], [place], [place], [address], [place] [phone] [facility] Physical (chief complaint) Encounter for general adult medical exam w abnormal findingsMigrai neHyperlipidem iaFibromyalgia Hypothyroidism 8 Cooper Aquino [address], [place], [address] , [place]. [phone] Referring Provider: Jesse Cannon [address], [place], [place], [address]. tel:[phone] OFFICE/OUTPA TIENT VISIT, EST [facility], [address], [place], [place], [address], [place] tel:[phone] [facility] insterstial cystitis (chief complaint)fibro myalgia (chief complaint)HLP (chief complaint)heada sam (chief complaint) Other specified acquired hypothyroidism Other chronic cystitisOther and unspecified hyperlipidemia Dietary surveillance and counselingHead ache 4 Cooper Mol[address], [place], [place], [address] , [place]. [phone] Referring Provider: Jesse Cannon [address], [place], [place], [address]. tel:[phone] OFFICE/OUTPA TIENT VISIT, EST [facility], [address], [place], [place], [address], [place] tel:[phone] [facility] UTI (chief complaint) Urinary Tract Infection 4 Gamboa Titus. [address], [place], [place], [address] , [place]. tel:[phone] Referring Provider: Jesse Cannon [address], [place], [place], [address]. tel:[phone] OFFICE/OUTPA TIENT VISIT, [facility], [place], [address], [place], [place], [address], [place] tel:[phone] [facility] fibromyalgia (chief complaint)insom stella (chief complaint)hypot hyroidism (chief complaint) Myalgia and myositis, unspecifiedFat igue / MalaiseInsomni a, OtherOther specified acquired hypothyroidism 4 Cooper Qureshi. [address], [place], [place], [address] , [place]. tel:[phone] Referring Provider: Jesse Cannon [address], [place], [place], [address]. tel:[phone] OFFICE/OUTPA TIENT VISIT, [facility], [place], [address], [place], [place], [address], [place] tel:[phone] [facility] insomnia (chief complaint)fatig ue (chief complaint)hypot hyroidism (chief complaint)heada sam (chief complaint) Insomnia, OtherFatigue / MalaiseHypothy roidismHeadach e 4 Cooper Aquino [address], [place], [place], [address] , [place]. tel:[phone] Referring Provider: Jesse Cannon [address], [place], [place], [address]. tel:[phone] OFFICE/OUTPA TIENT VISIT, [facility], [place], [address], [place], [place], [address], [place] tel:[phone] [facility] weight gain (chief complaint)skin change (chief complaint)pain (chief complaint)heada sam (chief complaint) Dietary surveillance and counselingPain in joint involving multiple sitesAbnormal weight gainHypothyroi dismRash and other nonspecific skin eruption 4 Cooper Qureshi. [address], [place], [place], [address] , [place]. tel:[phone] Referring Provider: Jesse Cannon [address], [place], [place], [address]. tel:[phone] PREV VISIT, EST, AGE 40-64 [facility], [address], [place], [place], [address], [place] [phone] [facility] Physical (chief complaint) Routine Medical ExamOther specified acquired hypothyroidism Other and unspecified hyperlipidemia Other specified types of cystitisRoutin e Medical Exam 4 Cooper Qureshi. [address], [place], [place], [address] , [place]. [phone] Referring Provider: Jesse Cannon [address], [place], [place], [address]. tel:[phone] OFFICE/OUTPA TIENT VISIT, EST [facility], [address], [place], [place], [address], [place] [phone] [facility] postmeno (chief complaint)HLP (chief complaint)Hypot hryoidism (chief complaint) Menopausal DisorderHypoth yroidismOther and unspecified hyperlipidemia 3 Cooper Qureshi. [address], [place], [place], [address] , [place]. tel:[phone] Referring Provider: Jesse Cannon [address], [place], [place], [address]. tel:[phone] OFFICE/OUTPA TIENT VISIT, EST [facility], [address], [place], [address], [place] tel:[phone] [facility] perimeno symptoms (chief complaint)ortho (chief complaint) Menopausal DisorderPain in joint involving lower leg 3 Cooper Qureshi. [address], [place], [address] , [place]. [phone] Referring Provider: Titus Gamboa, [address], [place], [place], [address]. tel:[phone] OFFICE/OUTPA TIENT VISIT, [facility], [place], [address], [place], [place], [address], [place] tel:[phone] [facility] fatigue (chief complaint)knee cap cyst (chief complaint) Fatigue / MalaiseOther specified acquired hypothyroidism Ganglion of joint 3 Cooper Qureshi. [address], [place], [place], [address] , [place]. [phone] Referring Provider: Jesse Cannon [address], [place], [place], [address]. tel:[phone] OFFICE/OUTPA TIENT VISIT, [facility], [place], [address], [place], [place], [address], [place] [phone] [facility] intertial cystitis (chief complaint)hypot hyroidism (chief complaint)HLP (chief complaint) Other chronic cystitisOther specified acquired hypothyroidism Other and unspecified hyperlipidemia 3 Cooper Qureshi. [address], [place], [place], [address] , [place]. [phone] Referring Provider: Jesse Cannon [address], [place], [place], [address]. tel:[phone] OFFICE/OUTPA TIENT VISIT, [facility], [place], [address], [place], [place], [address], [place] tel:[phone] [facility] Hyperthyroidism (chief complaint)gluco se (chief complaint)vitam in D (chief complaint) Hypothyroidism HyperglycemiaU nspecified vitamin d deficiency 3 Cooper Qureshi. [address], [place], [place], [address] , [place]. tel:[phone] Referring Provider: Jesse Cannon [address], [place], [place], [address]. tel:[phone] PREV VISIT, EST, AGE 40-64 [facility], [address], [place], [place], [address], tel:[phone] [facility] Physical (chief complaint) Routine Medical ExamHypothyroi dismAcute cystitisOther and unspecified hyperlipidemia Routine Medical Exam 3 Cooper Qureshi. [address], [place], [place], [address] , [place]. tel:[phone] Referring Provider: [facility] [place], [address]. tel:[phone] OFFICE/OUTPA TIENT VISIT, [facility], [place], [address], [place], [place], [address], [place] tel:[phone] [facility] hypothyroidism (chief complaint)fasti adryan (chief complaint)cysti tis (chief complaint)cough (chief complaint) Other specified acquired hypothyroidism Other chronic cystitisBronch itis, Acute 2 Cooper Qureshi. [address], [place], [place], [address] , [place]. tel:[phone] Referring Provider: Jesse Cannon [facility], [place], [place], [address]. tel:[phone] OFFICE/OUTPA TIENT VISIT, [facility], [place], [address], [address], [place] tel:[phone] [facility] hypothyroidism (chief complaint)sinus infection (chief complaint) Other specified acquired hypothyroidism Fatigue / MalaiseSinusit is, Acute 2 Cooper Qureshi. [address], [place], [place], [address] , [place]. tel:[phone] Referring Provider: Jesse Cannon [address] [facility] [address], [place], [place], [address]. tel:[phone] Family History Family Member Type Diagnosis Age At Onset Mother Problem (finding) Alive and well Sister Problem (finding) fibromyalgia Father Problem (finding) Alive and well Payers Payer name Insurance type Covered alliance party ID Authoriza tion(s) No Information Social History Type Description Quantity Date Captured Comments Alcohol Use Details No Caffeine Use Details Unknown Tobacco Use Status Heavy cigarette smok er (20-39 cigs/day) Smoking Status Heavy tobacco smoker Smoking Tobacco Use Details Cigarette: Age Started: 14, Years Used 43 Cigarette: 1 Packs per day, Pack Year: 44 Sex Female Vital Signs Date / Time: Height Weight BMI Pulse Rate Blood Pressure Temperature Respiratory Rate Body Surface Area Head Circumference BMI percentile Pulse Ox Inhaled Ox 4:54 PM 66.00 in 154.00 lbs 24.8 6 kg/m eter (2) 60 /min 115/66 mm[Hg] 98.3 F 16 /min Chief Complaint And Reason For Visit From encounter dated '01/11/2021 16:49'. anxiety1 (chief complaint). Description: Pt has chronic anxiety and depression Pt takes cymbalta and doing ok .Pt denies any suicidal or homicidal thought Pt denies any crying spells. Pt needs cymbalta refilled. migraine (chief complaint). Description: Pertinent negatives include memory impairment or vomiting.Additional information: Pt has fibromyalgia. Pt is noncompliant with lyrica and she is off lyrica for long time Pt takes neurontin and ultram PRN and she still has poorly controlled pain. migraine1 (chief complaint). Description: Pt has chronic migraine. Pt denies any acute headache. Pthas headache 1-2 per month Pt does not want daily prophylactic meds Pt takes maxalt PRn an doing ok. Pt had normal MRI of brain per pt. Pt denies any worsening headache ,Pt denies any head injury or waking up at night with headache . GERD1 (chief complaint). Description: Pt has GERD. Pt takes pepcid but not daily .Pt still has frequent GERD Pt had EGD done but she refuses to go back to GI for meche to discuss the EGD and biopsy results. Pt told me GI called her and told her to make mcehe but she refused to do that and wanting them to tell her result on the phone but GI insisted that she make meche HLP (chief complaint). Description: Pt has HLP Pt has been out of lipitor. Pt denies any myalgia IC (chief complaint). Description: Pt has intersitial cystitis. her previous urology left and she has been dealing with urinary urgency, dysuria chronically and she was referred to [facility] urology twice and she told me she never heard from urology. Plan Of Treatment Date Type Action Status Goal Special diet education compl eted Goal Tobacco cessation counseling completed Goal Tobacco cessation counseling completed Goal Special diet education compl eted Goal Special diet education compl eted Goal Tobacco cessation counseling completed Goal Tobacco cessation counseling completed Goal Special diet education compl eted Goal Special diet education compl eted Goal Tobacco cessation counseling completed Goal Special diet education compl eted Goal Tobacco cessation counseling completed Goal Special diet education compl eted Goal Tobacco cessation counseling completed Goal Special diet education compl eted Goal Tobacco cessation counseling completed Goal Tobacco cessation counseling completed Goal Tobacco cessation counseling completed Goal Tobacco cessation counseling completed Goal Tobacco cessation counseling completed Goal Tobacco cessation counseling completed Goal Tobacco cessation counseling completed Goal Tobacco cessation counseling completed Goal Tobacco cessation counseling completed Goal Tobacco cessation counseling completed Goal Tobacco cessation counseling completed Goal Tobacco cessation counseling completed Referral Ordered: Sonny Arriola -[facility] : Urology (related to Interstitial cystitis (chronic) without hematuria) ordered Referral Referred To: Sonny Arriola [address] [facility]
[address] [place], [place], [phone] Ordered: Referrals: [facility] : Urology. Sonny Arriola. Evaluate and treat ordered Referral Ordered: Hematology (related to Essential thrombocytosis) ordered Referral Ordered: UPPER GI ENDOSCOPY, BIOPSY ordered Referral Ordered: Referrals: Hematology. Evaluate and treat ordered Referral Ordered: DXA BONE DENSITY, AXIAL ordered Referral Ordered: CT THORAX W/O DYE ordered Referral Ordered: US THYROID ordered Referral Ordered: COLONOSCOPY AND BIOPSY ordered Referral Ordered: Referral: Pulmonary Diseases. Evaluate and treat. ordered Referral Ordered: Referral: Dermatology. ordered Referral Ordered: Referral: Ortho Surg. Evaluate and treat. ordered Referral Ordered: MAMMOGRAM, SCREENING ordered History Of Present Illness Encounter Date Complaint History Of Prese nt Illness migraine Pertinent negati ves include memory impairment or vomiting. Additional information: Pt has fibromyalgia. Pt is noncompliant with lyrica and she is off lyrica for long time Pt takes neurontin and ultram PRN and she still has poorly controlled pain. GERD Pt has GERD. Pt takes pepcid but not daily .Pt still has frequent GERD Pt had EGD done but she refuses to go back to GI for meche to discuss the EGD and biopsy results. Pt told me GI called her and told her to make meche but she refused to do that and wanting them to tell her result on the phone but GI insisted that she make meche migraine1 Pt has chronic m igraine. Pt denies any acute headache. Pt has headache 1-2 per month Pt does not want daily prophylactic meds Pt takes maxalt PRn an doing ok. Pt had normal MRI of brain per pt. Pt denies any worsening headache ,Pt denies any head injury or waking up at night with headache . HLP Pt has HLP Pt lyle s been out of lipitor. Pt denies any myalgia IC Pt has intersiti al cystitis. her previous urology left and she has been dealing with urinary urgency, dysuria chronically and she was referred to [facility] urology twice and she told me she never heard from urology. anxiety1 Pt has chronic a nxiety and depression Pt takes cymbalta and doing ok .Pt denies any suicidal or homicidal thought Pt denies any crying spells. Pt needs cymbalta refilled. platelet1 Pt has high plat elet and high WBC and high neutrophile Pt is seeing hematology. hypothyroidism1 Pt has hypothyro idism. Pt takes synthroid Pt has high thyroglobulin calcium1 Pt has high calc ium. Pt has fibromyalgia. renal Pt has borderlin e low renal function osteopenia1 Pt has osteopeni a .Pt has low D ,pt denies any fx. insomnia1 Pt has insomnia Pt has not tried seroquel. Pt is afraid of the side effects insomnia1 Pt has chronic i nsomnia Pt denies any snoring ,Pt denies any trouble with breathing at night. Pt used to take lunesta long time ago anxiety1 Pt has chronic a nxiety and depression Pt takes cymbalta and doing ok. PT denies any suicidal or homicidal thought Pt denies any crying spells UTI1 Pt c/o dysuria,, urinary frequency and urgency for 3 days. Pt has IC and she has chronic symptoms but seems worse for several days. Pt denies any fever, chill, abd pain. IC Pt has chronic i ntersitial cystitis. Pt has chronic urinary urgency and frequency. Pt had negative cystoscope by urology. Pt was on elmiron but his urology left the practice and she is not able to get elmiron anymore. fibromyalgia1 Pt has fibromyal julio. Pt has been taking neurontin but not helping her much Pt has chronic neck and back and muscle pain Pt had negative rheumatological work up sinus infection sinus infection1 Pt c/o sinus pa in, postnasal drainage, purulent sinus drainage, mild sore throat for 2 days ,Pt denies any fever, headache, cough, sob. Pt denies any GI symptoms. Pt denies any loss of taste and smell physical Pt needs annual physical. Pt has low thyroid Pt takes synthroid Pt denies any dysphagia. Pt has fibromyalgia, Pt takes neurontin. Pt has anxiety and depression Pt takes Cymbalta and doing ok. Pt denies any suicidal or homicidal thought. Pt has osteopenia. Pt takes calcium and. D. Pt has HLP Pt takes lipitor. PT denies any myalgia. Pt has migraine headache, Pt uses maxalt PRn Pt states that she has migraine 1-2 every other month, pt states that maxalt works well. Pt denies any head injury or waking up at night with headache. Pt has throbbing headache with photophobia and nausea. Pt told me she had normal MRi of brain in the past for migraine headache. Pt has chronic GERD. Pt is noncompliant with EGD. Pt doing ok with OTC pepcid. thyroid Pt has low thyro id. Pt takes synthroid, Her thyroid ultrasound is ok Pt denies any dysphagia high platelet1 pt has high plat elet. GERD1 Pt has GERD Pt d enies any abd pain. Pt never tried zantac or pepcid pt only takes omeparzole Pt states that she is doing ok HLP Pt has HLp pt on ly takes 40 mg lipitor, not 80 mg and she is working on diet and her lipid profile is better. PT denies any myalgia sinus1 Pt c/o persisten t sinus congestion, postnasal drainage, ear pain, sinus pain, frontal headache for 2 months Pt c/o green purulent sinus drainage. Pt notices raw feeling around her sinus. Pt c/o mild dry cough for two months. 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 Pt states that she still needs to use abdulkadir a lot. Pt denied any abd pain thrombocytosis1 Pt has mildly hi gh platelet Pt denies any bleeding osteopenia1 Pt has osteopeni a. pt denies any fracture. pt is postmeno. Pt does have low D hematuria1 Pt has IC with h ematuria pt sees urology Pt denies any UTi symptoms or back pain HLP Pt has HLP. Pt t akes 40 mg lipitor. her cholesterol is still bad. Pt denies any myalgia. Pt is not on any diet GERD1 Pt states that z antac is not helping. Pt has daily GERD ,Pt denies any nausea, vomiting, diarrhea thyroid1 pt has low thyro id. Pt takes synthroid. Ultrasound ok. pt denies any dysphagia anxiety1 Pt has chronic a nxiety and depression Pt takes cymbalta and doing ok. Pt denies any suicidal thought. Pt denies any crying spells HLP Pt has HLP Pt ta kes lipitor 40 mg daily Pt denies any myalgia. copd1 Pt has COPD acco rding to her PFt from previous MD. Pt denies any sob, Pt denies any coughing or hemoptysis Pt supposes to have LDCT done but she did not get it done colonoscopy1 Pt states that s he went for her colonoscopy but the procedure was terminated due to poor cleaning of her bowels and she became frustrated and she does not want to do it anymore? Pt denies any GI issue bone density Pt is postmenopa usal for several years. Pt never had bone density. Pt denies any fracture HLP Pt needs refill of lipitor. Pt denies any myalgia GERD1 Pt has been havi ng GERD symptoms daily for the past several weeks. Pt has been taking tums daily. Pt denies any nausea, vomiting, diarrhea, or abdominal pain cataract1 Pt has cataract and she needs surgery soon and she needs clearance. Pt will undergo right eye surgery under [facility] thyroidism1 Pt has low thyro id. Pt takes synthroid. Her TSH is ok. Pt just had normal thyroid ultrasound Pt denies any dysphagia colitis1 Pt has ? colitis on Ct scan pt denies any GI issue Pt has appointment with colonoscopy soon HLP pt is on lipitor . Pt is not sure if she is on 40 mg of lipitor? Pt told me she thinks she is on 40 mg lipitor Her lipid profile was high 6 months ago Pt is not on any diet sinus1 Pt c/o purulent sinus drainage, sore throat, sinus headache for 4 weeks Pt c/o dry cough and yellow phlegm. Pt denies any chest pain or sob. Pt denies any fever, chill. Pt denies any recent travel. Pt denies any sick contact. Physical Pt needs annual physical. Pt has interstitial cystitis. Pt takes elmiron and doing ok. pt sees urology. Pt has low thyroid. Pt takes synthroid. Pt has chronic migraine headache. Pt takes maxalt PRn. pt has migraine headache twice per month Pt denies any acute headache Pt has HLP. Pt takes lipitor .Pt denies any myalgia. pt has fibromyalgia. Pt takes neurontin and also lyrica. Pt doing ok Pt also has anxiety and depression. pt was taking cymbalta but she run out and her previous PCP will not refill for her. Pt denies any suicidal or homicidal thought. Pt denies any crying spells Instructions Date Instruction Additional Infor estefani Special diet education Related t o Body mass index (BMI) 25.0-25.9, adult Special diet education Related t o Body mass index (BMI) 26.0-26.9, adult Patient instructed o n use of saline sprays. Related to Acute sinusitis Special diet education Related t o Body mass index (BMI) 26.0-26.9, adult Eat smaller meals, n o eating three hours prior to bedtime. Related to GERD w/o esophagitis Elevate head of bed prior to sle ep. Related to GERD w/o esophagitis Avoid provocative fo ods: citrus, alcohol, coffee, chocolate, mints. Related to GERD w/o esophagitis Special diet education Related t o Body mass index (BMI) 26.0-26.9, adult Stop smoking Related to Fibro myalgia Stop smoking Related to Fibro myalgia Special diet education Related t o Body mass index (BMI) 36.0-36.9, adult Special diet education Related t o Body mass index (BMI) 26.0-26.9, adult Quit smoking Related to Hypot hyroidism Special diet education Related t o Body mass index (BMI) 26.0-26.9, adult Quit smoking Related to Acute sinusitis Quit smoking Related to Encou nter for general adult medical exam w abnormal findings Special diet education Related t o Body mass index (BMI) 26.0-26.9, adult Quit smoking Related to Encou nter for general adult medical exam w abnormal findings Physical activity counseling Rel ated to Dietary surveillance counseling Decrease caloric intake Related to Dietary surveillance counseling Dietary counseling Related to Di etary surveillance counseling Decrease caloric intake Related to Dietary surveillance counseling Assessments Type Assessment Date assessment Generalized Anxiety Disorder Dec assessment Fibromyalgia assessment Hyperlipidemia assessment Interstitial cystitis (chronic) without hematuria assessment Migraine assessment Tobacco use assessment GERD w/o esophagitis Mental Status Date Cognitive Assessment Orientation - [place] ed to time, place, person, situation.
--- OUTSIDE RECORDS SUMMARY | 2024-09-03 15:11 | XMS_ITS | Clinical Summary ---
Author Organization [facility] al Address [address] [place] [address] Care Team Providers Care Screw Cutter Name Role Phone Niles Sanders MD Primary Care Provider [phone] Juan Manuel Nunez MD Unavailable Allergies No known active allergies Medications levothyroxine [...] mg total) by mouth nightly at bedtime 3 Active calcium carbonate (TUMS) 500 mg [...] (08/07/2022): Added automatically from request for surgery [id number] COPD (chronic obstructive pulmonary disease) 08/2020 Overview [...] interstitial cystitis 12/27/2013 Overview (08/23/2016): Interstitial cystitis Encounters Date Type Department Care Team Description 07/06/2024 Orders Only [facility] Neurosurgery [address] [facility] [address], [address] [place] [address] Lee Sarah MD Meningioma (HCC) (Primary Dx) 07/05/2024 Telephone [facility] Scheduling [address] [place] [address] Yamilex Vasquez from Last 3 Months Surgical History Surgery Date Site/Laterality Comments HYSTERECTOMY partial CRANIOTOMY FOR TUMOR 08/27/2022 Right Medical History Medical History Date Comments Hx Other Medical IC Hx Other Medical hyprothyroidism Hx Other Medical Headache, migra ine Brain tumor (benign) (HCC) Motion sickness GERD (gastroesophageal reflux disease) Thyroid disease hypothyroid Migraines Hypercholesteremia Anxiety Depression COPD (chronic obstructive pulmonary disease) (HC C) Cystitis Family History Medical History Relation Name Comments Heart disease Maternal Grandmother Heart disease Mother Other Mother Alive and well; Anesthesia problems Neg Hx Relation Name Status Comments Maternal Grandmother Mother Alive Social History Tobacco Use Types Packs/Day [...] on file Legal Sex Female 3:13 AM PIANO TUNER Gender Identity Female 09/21/2022 6:44 PM CDT Sexual Orientation Straight 09/21/2022 6: 44 PM CDT Obstetrics History Last Filed Vital Signs Vital Sign Reading Time Taken Comments Blood Pressure 135/90 10/01/2023 2:43 PM CDT Pulse 89 10/01/2023 2:43 PM CDT Temperature 37.1 C (98.8 F) 04/01/2023 11:37 AM PIANO TUNER Respiratory Rate 18 10/01/2023 2:43 PM CDT Oxygen Saturation 95% 10/01/2023 2:43 PM CDT room air Inhaled Oxygen Concentration - - Weight 68 kg (150 lb) 04/02/2024 11:58 AM PIANO TUNER Height 157.5 cm (5' 2 ) 04/02/2024 11:58 AM PIANO TUNER Body Mass Index 27.44 04/02/2024 11:58 AM PIANO TUNER Plan of Treatment Health Maintenance Due Date Last Done Comments Breast Cancer Screening-Mammogram 1959 Colon Cancer Screening-Colonoscopy 1959 Depression Screening 1959 Hepatitis C Screening 1959 Osteoporosis Screening-Bone Density Scan 1959 DTaP/Tdap/Td Vaccine (1 - Tdap) 1970 Hepatitis B Screening 1977 Pneumococcal vaccine 65+ (1 of 2 - PCV) 1978 Zoster Vaccine (1 of 2) 2009 Fall Risk Assessment 09/27/2023 09/26/2022, 09/03/19 Covid-19 Vaccine ( season) 2024 05/21/2021, 11/15/2020, 10/18/2020 Well Visit 65+ 01/18/2024 Lung Cancer Screening 10/14/2024 10/14/2023 Influenza Vaccine (Season Ended) 2025 Medical Devices Implanted Type Area Fish Boning Machine Feeder Device Identifier Shelf Expiration Date Model / Serial / Lot Mary Alice Craniomaxillofacial Un3 1.5mm 4mm Self Drill Craniomaxillofacial Screw Bone [id number] - [id number] Implanted:Qty: 35 on 08/27/2022 by Lee Sarah MD at [facility] N/A: Cranial Mary Alice Craniomaxillofacial [id number] / / [place] Craniomaxillofacial Medpor 7mm Tab Low Profile Cover Spout Spring Hole Titanium Sterile [id number] - [id number] Implanted:Qty: 4 on 08/27/2022 by Lee Sarah MD at [facility] N/A: Cranial Mary Alice Craniomaxillofacial [id number] / / [place] Craniomaxillofacial [place] Neuro Iii .4mm 2 Hole Low Profile Bar Tab [id number] - [id number] Implanted:Qty: 2 on 08/27/2022 by Lee Sarah MD at [facility] N/A: Cranial [place] Craniomaxillofacial [id number] / / Mary Alice Craniomaxillofacial [place] Neuro Iii 10mm Tab Craniomaxillofacial Low Profile [id number] - [id number] Implanted:Qty: 2 on 08/27/2022 by Lee Sarah MD at [facility] N/A: Cranial Mary Alice Craniomaxillofacial [id number] / / Procedures Procedure Name Priority Date/Time [...] screening) Electronically signed by: Sheyla Blount M.D. 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
--- OUTSIDE RECORDS SUMMARY | 2024-09-03 15:11 | XMS_ITS | Encounter Summary ---
Author Organization [facility] Healthcare Address [address] [place] [address] Care Team Providers Care Slate Handler Name Role Phone Josey Murry MD Primary Care Provider Paula Hi RN Unavailable [phone] Niles Sanders MD Primary Care Provider [phone] Juan Manuel Nunez MD Unavailable Encounter Details Date Type Department Care Team (Late st Contact Info) Description 09/19/2022 Telephone [facility] Advanced Medicine Radiation Oncology [address] [facility] Advanced Medicine [facility] [place] [address] Juan Manuel Nunez MD [facility] [address] [place], [place] [id number] Social History Tobacco Use Types Packs/Day Years Used Date Smoking Tobacco: Every Day Cigarettes Started: 1976 Passive Smoke Exposure: Current Smokeless Tobacco: Never Alcohol Use Standard Drinks/Week Comments No 0 (1 standard drink = 0.6 oz pur e alcohol) AUDIT-C Answer Date Recorded Q1: How often do you have a drink containing alcohol? Never 08/27/2022 Q2: How many drinks containi ng alcohol do you have on a typical day when you are drinking? Patient does not drink Q3: How often do you have si x or more drinks on one occasion? Never 08/27/2022 Personal Safety Answer Date Recorded Have you ever been in or are you currently in a harmful physical or emotional relationship or is someone making you feel afraid or unsafe? 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 Gender Identity Female 09/21/2022 6:44 PM CDT Sexual Orientation Straight 09/21/2022 6: 44 PM CDT documented as of this encounter Plan of Treatment Not on file documented as of this encounter Visit Diagnoses Not on filedocumented in this encounter Care Teams Slate Handler Relationship Specialty Start Date End Date Josey Murry MD [address] [facility] [address] [place] [address] PCP - General 09/05/14 09/25/22 Niles Sanders MD [address] [place] [address] PCP - General Family Medicine 09/26/22 Paula Hi, RN [address] [place] [address] Nurse Navigator 08/15/22 10/17/22 Juan Manuel Nunez MD [address] [place] [address] Radiation Oncologist Radiation Oncology 11/04/22 documented as of this encounter
--- OUTSIDE RECORDS SUMMARY | 2024-09-03 15:11 | XMS_ITS | Encounter Summary ---
Author Organization [facility] Address [address] [place] [address] Phone Care Team Providers Care Bmet Name Role Phone Titus Gamboa Primary Care Provider [phone] Encounter Details Date Type Department Care Team ([facility] Contact Info) Description 10/19/2019 Telephone [facility] [address] [place] [address] Bang Olivas MD [address] [facility] [address] [place] [address] Social History Tobacco Use Types Packs/Day Years Used Date Smoking Tobacco: Every Day Cigarettes 1 45 Smokeless Tobacco: Never Alcohol Use Standard Drinks/Week Comments Not Currently 0 (1 standard drink = 0.6 oz pur e alcohol) PHQ-2 Answer Date Recorded Total Score - Questions 1-9 0 01/2020 Comments Unknown Sex and Gender Information Value Date Recorded Sex Assigned at Not on file Legal Sex Female 10:14 PM CDT Gender Identity Not on file Sexual Orientation Not on file documented as of this encounter Miscellaneous Notes * Telephone Encounter - Ne Fonseca - 10/19/2019 1:29 PM CDT PATIENT CALLED TO CANCEL APPT . SHE DID NOT RESCHEDULE SHE STATED SHE IS GOING TO BE OUT [facility] FOR ABOUT A MONTH AND WILL CALL WHEN SHE IS BACK IN [place]OWN. documented in this encounter Plan of Treatment Not on file documented as of this encounter Visit Diagnoses Not on filedocumented in this encounter Additional Health Concerns Assessment Noted Time PHQ-9 Depression Total Score: 0 08/26/19 20 3:11 PM CDT documented as of this encounter Care Teams Bmet Relationship Specialty Start Date End Date Titus Gamboa [address] [place] [address] PCP - General Family Medicine 06/02/19 documented as of this encounter
--- OUTSIDE RECORDS SUMMARY | 2024-09-03 15:11 | XMS_ITS | Clinical Summary ---
Author Organization [facility] Address [address] [place] [address] Phone Care Team Providers Care Voice Engineer Name Role Phone Titus Gamboa Primary Care Provider [phone] Allergies No known active allergies Medications atorvastatin (LIPITOR) 40 MG Tablet TK 1 T PO QD 08/11/2019 Active DULoxetine (CYMBALTA) [address] Particles TK 1 C PO QD 08/22/2019 Active gabapentin (NEURONTIN) 300 MG Capsule TK 2 CS PO TID 04/03/2019 Active lactulose (CHRONULAC) 10 GM/15ML Solution TK 15 ML PO QD 08/13/2019 Active levothyroxine (SYNTHROID) 100 MCG Tablet TK 1 T PO QD 05/03/2019 Active [place]-3 Fatty Acids (PA FISH OIL) 1000 MG Capsule Active traMADol (ULTRAM) 50 MG Tablet Take 50 mg by mouth every 6 hours as needed. Active Rizatriptan Benzoate 10 MG Tablet Take 10 mg by mouth once as needed. May repeat in 2 hours in needed Active Active Problems Problem Noted Date Diagnosed Date Thrombocytosis 08/26/2019 Family History Medical History Relation Name Comments Congestive Heart Failure Maternal Grandfather Osteoarthritis Mother Diabetes Sister Hypertension Sister Thyroid Disease Sister Relation Name Status Comments Maternal Grandfather Mother Sister Social History Tobacco Use Types Packs/Day Years Used Date Smoking Tobacco: Every Day Cigarettes 1 45 Smokeless Tobacco: Never Alcohol Use Standard Drinks/Week Comments Not Currently 0 (1 standard drink = 0.6 oz pur e alcohol) PHQ-2 Answer Date Recorded Total Score - Questions 1-9 0 04/0 01/2020 Comments Unknown Sex and Gender Information Value Date Recorded Sex Assigned at Not on file Legal Sex Female 10:14 PM CDT Gender Identity Not on file Sexual Orientation Not on file Last Filed Vital Signs Vital Sign Reading Time Taken Comments Blood Pressure 118/82 08/26/2019 3:08 PM CDT Pulse 94 08/26/2019 3:08 PM CDT Temperature 36.7 C (98.1 F) 08/26/2019 3:08 PM CDT Respiratory Rate 18 08/26/2019 3:08 PM CDT Oxygen Saturation 96% 08/26/2019 3:08 PM CDT Inhaled Oxygen Concentration - - Weight 73.5 kg (162 lb) 08/26/2019 3:08 PM CDT Height 157.5 cm (5' 2 ) 08/26/2019 3:08 PM CDT Body Mass Index 29.63 08/26/2019 3:08 PM CDT Plan of Treatment Health Maintenance Due Date Last Done Comments Hepatitis C Virus (HCV) Screening 1960 TdaP Immunization 1960 Colonoscopy 01/18/2004 Cologuard 2009 Pneumococcal Immunization (5 0+ years) (1 of 1 - PCV) 2009 Zoster Immunization (1 of 2) 2009 Colorectal Cancer Screening 09/19/2016 Immunochemical Fecal Occult Blood 09/18/2017 09/18/2016, 10/06/2013 Influenza Immunization (#1) 2024 SARS-COV-2 Immunization (2023- season) 2024 05/21/2021, 11/15/2020, 10/18/2020 Respiratory Syncytial Virus (RSV) Immunization (Adult) (1 - 1-dose 75+ series) 2034 Hepatitis B Immunization Aged Out No longer eligible based on patient's age to complete this topic Meningococcal Immunization (ACWY) Aged Out No longer eligible b ased on patient's age to complete this topic Rotavirus Immunization Aged Out No lo nger eligible based on patient's age to complete this topic Insurance [place] Care Teams Voice Engineer Relationship Specialty Start Date End Date Titus Gamboa [address] [place] [address] PCP - General Family Medicine 06/02/19
--- OUTSIDE RECORDS SUMMARY | 2024-09-03 15:11 | XMS_ITS | Encounter Summary ---
Author Organization [facility] Address [address] [place] [id number] Care Team Providers Care Firebreak Cutter Name Role Phone Unavailable Primary Care Provider Unavailabl e Encounter Details Date Type Department Care Team (Latest Contact Info) Description 03/24/2018 Abstract [facility] , Generic MD Beau Social History Tobacco Use Types Packs/Day Years Used Date Smoking Tobacco: Never Assessed Comments Unknown Sex and Gender Information Value Date Recorded Sex Assigned at Not on file Legal Sex Female 6:24 PM CDT Gender Identity Not on file Sexual Orientation Not on file documented as of this encounter Plan of Treatment Not on file documented as of this encounter Visit Diagnoses Not on filedocumented in this encounter
== END 2024-09-03 15:07 | disposition home or self-care (01) ==
LOC: ANHIMG 15:09
PROVIDERS: PCP Family Medicine; Visit Provider Family Medicine
DX: Z12.31 Encounter for screening mammogram for malignant neoplasm of breast (principal)
CPT/HCPCS: 77063; 77067

== ENCOUNTER 2024-11-24 12:42 | Outpatient (CLI) | payer MEDICARE, SELFPAY ==
--- OUTSIDE RECORDS SUMMARY | 2024-11-24 12:46 | XMS_ITS | Clinical Summary ---
Author Organization [facility] Address [address] [place] [address] Care Team Providers Care Web Art Director Name Role Phone Unavailable Primary Care Provider [...] 10:42 AM CDT Height 165.1 cm (5' 5) 02/14/2015 10:42 AM CDT Body Mass Index 25.79 02/14/2015 10:42 AM CDT Plan of Treatment Health Maintenance Due Date Last Done Comments Colorectal Cancer Screening Colonoscopy (10 Years) 1959 Hepatitis C 1977 DTaP, Tdap and Td Vaccines ( 1 - Tdap) 1978 Mammogram Screening 1999 Pneumococcal Vaccine: 50+ Ye ars (1 of 1 - PCV) 2009 Zoster Vaccines (1 of 2) 2009 COVID-19 Vaccine ( - 2023-2 5 season) 2024 Dexa Scan (General) 01/18/2024 RSV Immunization or 60+ Years (1 [...]
--- OUTSIDE RECORDS SUMMARY | 2024-11-24 12:46 | XMS_ITS | Clinical Summary ---
Author Organization [facility] Address [address] [place] [address] Phone Care Team Providers Care Ordnance Truck Installation Mechanic Name Role Phone Titus Gamboa Primary Care Provider [phone] Allergies No known active allergies Medications atorvastatin [...] TK 1 T PO QD 05/03/2019 Active [place]-3 Fatty Acids (PA FISH OIL) 1000 MG [...] 3:08 PM CDT Height 157.5 cm (5' 2) 08/26/2019 3:08 PM CDT Body Mass Index 29.63 08/26/2019 3:08 PM CDT Plan of Treatment Health Maintenance Due Date Last Done Comments Hepatitis C Virus (HCV) Screening 1960 TdaP Immunization 1960 Cologuard 01/18/2004 Colonoscopy 01/18/2004 Pneumococcal Immunization (5 0+ years) (1 of 1 - PCV) 2009 Zoster Immunization (1 of 2) 2009 Colorectal Cancer Screening 09/18/2017 Immunochemical Fecal Occult Blood 09/18/2017 09/18/2016, 10/06/2013 SARS-COV-2 Immunization ( season) 2024 05/21/2021, 11/15/2020, 10/18/2020 Influenza Immunization (#1) 2025 Respiratory Syncytial Virus (RSV) Immunization (Adult) (1 - 1-dose 75+ series) 2034 Hepatitis B Immunization Aged Out No longer eligible based on patient's age to complete this topic Human Papillomavirus (HPV) Immunization Aged Out No longer eligible b ased on patient's age to complete this topic Meningococcal Immunization (ACWY) Aged Out No longer eligible b ased on patient's age to complete this topic Rotavirus Immunization Aged Out No lo nger eligible based on patient's age to complete this topic Insurance [place] Care Teams Ordnance Truck Installation Mechanic Relationship Specialty Start Date End Date Titus Gamboa [address] [place] [address] PCP - General Family Medicine 06/02/19
--- OUTSIDE RECORDS SUMMARY | 2024-11-24 12:46 | XMS_ITS | Clinical Summary ---
Author Organization [facility] Address [address] [place] [address] Care Team Providers Care Dip Painter Name Role Phone Titus Gamboa MD Primary Care Provider [phone] Source Comments [facility],non-owned Affiliates and Associated Physician Practices is amultiple site organization consisting of ambulatory clinics and hospital sitesin [place], [place], [place] and [place]. This disclosure is being madepursuant to the Care Everywhere program and may not contain all information available regarding this patient. Last updated 18.[facility] Allergies No known active allergies Medications * Be aware that medications may not be up to date on this document. Alwaysverify current medications with the patient. gabapentin (NEURONTIN) 300 MG capsule TK 2 CS PO TID 9 Active levothyroxine (SYNTHROID) 100 MCG tablet TK 1 T PO QD 9 Active [place]-3 Fatty Acids (PA FISH OIL) 1000 MG [...] Active pentosan polysulfate sodium (ELMIRON) 100 MG capsuleIndicatio ns:Chronic Interstitial Cystitis Take 1 (one) capsule by mouth once daily Reasons: Chronic Bladder Wall Inflammation 30 capsule 11 1 Active oxybutynin (DITROPAN) 5 MG tabletIndication s:Urinary Urgency Take 1 (one) tablet by mouth 3 times daily Reasons: Urinary Urgency 180 tablet 4 1 Active Active Problems No known active problems Family History Medical History Relation Name Comments CAD (Coronary Artery Disease) Maternal Grandfather CAD (Coronary Artery Disease) Mother ? 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
--- OUTSIDE RECORDS SUMMARY | 2024-11-24 12:46 | XMS_ITS | Referral Summary ---
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 Gender Identity Female 09/21/2022 6:44 PM CDT Sexual Orientation Straight 09/21/2022 6: 44 PM CDT Last Filed Vital Signs Vital Sign Reading Time Taken Comments Blood Pressure 135/90 10/01/2023 2:43 PM CDT Pulse 89 10/01/2023 2:43 PM CDT Temperature 37.1 C (98.8 F) 04/01/2023 11:37 AM HONING MACHINE OPERATOR TOOL Respiratory Rate 18 10/01/2023 2:43 PM CDT Oxygen Saturation 95% 10/01/2023 2:43 PM CDT room air Inhaled Oxygen Concentration - - Weight 68 kg (150 lb) 04/02/2024 11:58 AM HONING MACHINE OPERATOR TOOL Height 157.5 cm (5' 2) 04/02/2024 11:58 AM HONING MACHINE OPERATOR TOOL Body Mass Index 27.44 04/02/2024 11:58 AM HONING MACHINE OPERATOR TOOL Plan of Treatment Not on file Medical Devices Implanted Type Area Project Controller Device Identifier Shelf Expiration Date Model / Serial / Lot Mary Alice Craniomaxillofacial Un3 1.5mm 4mm Self Drill Craniomaxillofacial Screw Bone [id number] - [id number] Implanted:Qty: 35 on 08/27/2022 by Lee Sarah MD at [facility] N/A: Cranial Mary Alice Craniomaxillofacial [id number] / / [place] Craniomaxillofacial Medpor 7mm Tab Low Profile Cover [place] Hole Titanium Sterile [id number] - [id number] Implanted:Qty: 4 on 08/27/2022 by Lee Sarah MD at [facility] N/A: Cranial [place] Craniomaxillofacial [id number] / / [place] Craniomaxillofacial [place] Neuro Iii .4mm 2 Hole Low Profile Bar Tab [id number] - [id number] Implanted:Qty: 2 on 08/27/2022 by Lee Sarah MD at [facility] N/A: Cranial Mary Alice Craniomaxillofacial [id number] / / [place] Craniomaxillofacial [place] Neuro Iii 10mm Tab Craniomaxillofacial Low Profile [id number] - [id number] Implanted:Qty: 2 on 08/27/2022 by Lee Sarah MD at [facility] N/A: Cranial Mary Alice Craniomaxillofacial [id number] / / Procedures Procedure Name Priority Date/Time [...] screening) Electronically signed by: Sheyla Blount M.D. [facility] Christi Sanders MD IMG CT PROCEDURES Final Result from Last 3 Months or Most Recently Relevant to Health Maintenance Insurance IDPA [facility] MEDICARE HMO HUMAN CHOICE MEDICARE PPO Advance Directives For more information, please contact: [phone] Documents on File Type Date Recorded Patient Adult Ministries Director Expl anation ADVANCE DIRECTIVE 08/29/2022 2:02 PM [employer] * Full Code (Latest Code Status on File) Date Activated Date Inactivated Comments 08/27/2022 7:13 PM 09/03/2022 4:16 PM Healthcare Agents on File Name Relationship Healthcare Agent [facility] p Communication Reed Dykes [facility] Care Agent Care Teams Airport Location Manager Relationship Specialty Start Date End Date Linda Delvalle MD [address] [place] [address] [address] PCP - General Family Medicine 09/30/24 Juan Manuel Nunez MD Radiation Oncologist Radiation Oncology 11/04/22
--- OUTSIDE RECORDS SUMMARY | 2024-11-24 12:46 | XMS_ITS | Encounter Summary ---
Author Organization [facility] Address [address] [place] [address] Care Team Providers Care Agricultural Equipment Design Engineer Name Role Phone Josey Murry MD Primary Care Provider Paula Hi RN Unavailable [phone] Niles Sanders MD Primary Care Provider [phone] Juan Manuel Nunez MD Unavailable Linda Delvalle MD Primary Care Provider + Encounter Details Date Type Department Care Team (Late st Contact Info) Description 09/19/2022 Telephone [facility] Advanced Medicine Radiation Oncology [facility] Advanced [place] [address] Juan Manuel Nunez MD [facility] [address] [place] [address] Social History Tobacco Use Types Packs/Day Years [...] on file 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 Gender Identity Female 09/21/2022 6:44 PM CDT Sexual Orientation Straight 09/21/2022 6: 44 PM CDT documented as of this encounter Plan of Treatment Not on file documented as of this encounter Visit Diagnoses Not on filedocumented in this encounter Care Teams Agricultural Equipment Design Engineer Relationship Specialty Start Date End Date Josey Murry MD [address] [facility] [address] [place] [address] PCP - General 09/05/14 09/25/22 Niles Sanders MD [address] [place] [address] PCP - General Family Medicine 09/26/22 09/29/24 Linda Delvalle MD [address] [place] [address] [address] [place] [address] PCP - General Family Medicine 09/30/24 Paula Hi, RN [address] [place] [address] Nurse Navigator 08/15/22 10/17/22 Juan Manuel Nunez MD [address] [place] [address] Radiation Oncologist Radiation Oncology 11/04/22 documented as of this encounter
--- OUTSIDE RECORDS SUMMARY | 2024-11-24 12:46 | XMS_ITS | Encounter Summary ---
Author Organization [facility] Address [address] [place] [address] Care Team Providers Care Wire Basket Maker Name Role Phone Unavailable Primary Care Provider Unavailabl e Encounter Details Date Type Department Care Team (Latest Contact Info) Description 03/24/2018 Abstract [facility] , Generic MD Beau [...]
--- OUTSIDE RECORDS SUMMARY | 2024-11-24 12:46 | XMS_ITS | Continuity of Care Document ---
Author Organization [facility] Address [address] [place] [address] [place] [address] Phone Care Team Providers Care Wire Dropper Name Role Phone Titus Gamboa MD Unavailable [...] times every day 600 MG - Active Vitamin D2 1,250 mcg (50,000 unit) capsule take one capsule orally once per week - Active Synthroid 100 mcg tablet take 1 tablet by oral route every day 100 MCG - Active Pepcid 40 mg tablet take [...] Copied on Encounter OFFICE/OUTPA TIENT VISIT, EST [facility], [address] [place], [place] [address]viridiana [facility], [address], [place] tel:[phone] [facility] anxiety1 (chief complaint)migra ine (chief complaint)migra ine1 (chief complaint)GERD1 (chief complaint)HLP (chief complaint)IC (chief complaint) Generalized Anxiety DisorderFibrom yalgiaHyperlip idemiaIntersti tial cystitis (chronic) without hematuriaMigra ineTobacco useGERD w/o esophagitis 1 Cooper Aquino [address], [place], [place], [address] , [place]. tel:[phone] [facility], [address], [place], [place], [address], [place] tel:[phone] [facility] No Information 1 Cooper Aquino [address], [address], [place], [place], [address] , [place]. tel:[phone] OFFICE/OUTPA TIENT VISIT, [facility], [address] [place], [address], [place] tel:[phone] [facility] platelet1 (chief complaint)hypot hyroidism1 (chief complaint)calci um1 (chief complaint)renal (chief complaint)osteo penia1 (chief complaint)insom nia1 (chief complaint) InsomniaOther specified disorder of bone densityLeukocy tosisHypercalc emiaRenal diseaseHypothy roidismTobacco useEncounter for oth screening for malignant neoplasm of breast 0 Cooper Qureshi. [address] [facility] [address], [place], [place], [address] , [place]. tel:[phone] OFFICE/OUTPA TIENT VISIT, [facility], [address] [place], [address], [place] tel:[phone] [facility] insomnia1 (chief complaint)anxie ty1 (chief complaint) InsomniaGenera lized Anxiety Disorder 0 Cooper Qureshi. [address], [place], [place], [address] , [place]. tel:[phone] OFFICE/OUTPA TIENT VISIT, [facility], [address] [place], [address], [place] tel:[phone] [facility] UTI1 (chief complaint) Urinary tract infectionInter stitial cystitis (chronic) without hematuria 0 Cooper Qureshi. [address], [place], [place], [address] , [place]. tel:[phone] OFFICE/OUTPA TIENT VISIT, EST [facility], [address], [place], [place], [address], [place] tel:[phone] [facility] IC (chief complaint)fibro myalgia1 (chief complaint) FibromyalgiaIn terstitial cystitis (chronic) without hematuria Sep-3 0 0 Cooper Qureshi. [address], [place], [place], [address] , [place]. [phone] [facility], [address], [place], [place], [address], [place] tel:[phone] [facility] No Information 0 Cooper Aquino [address], [place], [place], [address] , [place]. tel:[phone] OFFICE/OUTPA TIENT VISIT, EST [facility], [address], [place], [place], [address], [place] tel:[phone] [facility] sinus infection (chief complaint)sinus infection1 (chief complaint) Acute sinusitis 0 Cooper Aquino [address], [place], [place], [address] , [place]. [phone] Referring Provider: Jesse Cannon [address], [place], [place], [address]. tel:[phone] PREV VISIT, EST, AGE 40-64 [facility], [address], [place], [place], [address], [place] tel:[phone] [facility] physical (chief complaint) Encntr for general adult medical exam w/o abnormal findings 0 0 Cooper Qureshi. [address], [place], [place], [address] , [place]. tel:[phone] Referring Provider: Titus Gamboa [address], [place], [place], [address]. tel:[phone] OFFICE/OUTPA TIENT VISIT, [facility], [address], [place], [place], [address], [place] tel:[phone] [facility] HLP (chief complaint)high platelet1 (chief complaint)GERD1 (chief complaint)thyro id (chief complaint) GERD w/o esophagitisEss ential thrombocytosis Hyperlipidemia Hypothyroidism Fibromyalgia 9 Cooper Qureshi. [address], [place], [place], [address] , [place]. tel:[phone] Referring Provider: Jesse Cannon [address], [place], [place], [address]. tel:[phone] OFFICE/OUTPA TIENT VISIT, [facility], [address], [place], [place], [address], [place] tel:[phone] [facility] sinus1 (chief complaint) Acute sinusitis 9 Cooper Qureshi. [address], [place], [place], [address] , [place]. tel:[phone] Referring Provider: Jesse Cannon [address], [place], [place], [address]. tel:[phone] OFFICE/OUTPA TIENT VISIT, [facility], [address], [place], [place], [address], [place] tel:[phone] [facility] HLP (chief complaint)hemat uria1 (chief complaint)osteo penia1 (chief complaint)throm bocytosis1 (chief complaint)GERD1 (chief complaint) GERD w/o esophagitisTob acco useOther specified disorder of bone densityEssenti al thrombocytosis Hyperlipidemia Hematuria 9 Cooper Qureshi. [address], [place], [place], [address] , [place]. tel:[phone] Referring Provider: Jesse Cannon [address], [place], [place], [address]. tel:[phone] OFFICE/OUTPA TIENT VISIT, [facility], [address], [place], [place], [address], [place] tel:[phone] [facility] anxiety1 (chief complaint)HLP (chief complaint)thyro id1 (chief complaint)GERD1 (chief complaint) GERD w/o esophagitisHyp othyroidismHyp erlipidemiaGen eralized Anxiety DisorderTobacc o use 9 Cooper Qureshi. [address], [place], [place], [address] , [place]. tel:[phone] Referring Provider: Jesse Cannon [address], [place], [place], [address]. tel:[phone] OFFICE/OUTPA TIENT VISIT, [facility], [address] [place], [address], [place] tel:[phone] [facility] GERD1 (chief complaint)HLP (chief complaint)bone density (chief complaint)colon oscopy1 (chief complaint)copd1 (chief complaint) FibromyalgiaGE RD w/o esophagitisEnc ounter for screening for osteoporosisHy perlipidemiaEm physema 9 Cooper Qureshi. [address], [place], [place], [address] , [place]. tel:[phone] Referring Provider: [facility], [place], [place], [address]. tel:[phone] OFFICE/OUTPA TIENT VISIT, [facility], [address] [place], [address], [place] tel:[phone] [facility] HLP (chief complaint)colit is1 (chief complaint)thyro idism1 (chief complaint)catar act1 (chief complaint) Hypothyroidism Hyperlipidemia CataractColiti sOther chronic cystitis without hematuria 9 Cooper Qureshi. [address], [place], [place], [address] , [place]. tel:[phone] Referring Provider: Jesse Cannon [address], [place], [place], [address]. tel:[phone] OFFICE/OUTPA TIENT VISIT, [facility], [address], [place], [place], [address], [place] tel:[phone] [facility] sinus1 (chief complaint) Acute sinusitis 8 Cooper Aquino [address], [place], [place], [address] , [place]. [phone] Referring Provider: Jesse Cannon [address], [place], [place], [address]. tel:[phone] PREV VISIT, EST, AGE 40-64 [facility], [address], [place], [place], [address], [place] [phone] [facility] Physical (chief complaint) Encounter for general adult medical exam w abnormal findingsMigrai neHyperlipidem iaFibromyalgia Hypothyroidism 8 Cooper Aquino [address], [place], [place], [address] , [place]. [phone] Referring Provider: Jesse Cannon [address], [place], [place], [address]. tel:[phone] OFFICE/OUTPA TIENT VISIT, EST [facility], [address], [place], [place], [address], [place] tel:[phone] [facility] insterstial cystitis (chief complaint)fibro myalgia (chief complaint)HLP (chief complaint)heada sam (chief complaint) Other specified acquired hypothyroidism Other chronic cystitisOther and unspecified hyperlipidemia Dietary surveillance and counselingHead ache 4 Cooper Molina [address], [place], [place], [address] , [place]. [phone] Referring Provider: Jesse Cannon [address], [place], [place], [address]. tel:[phone] OFFICE/OUTPA TIENT VISIT, EST [facility], [address], [place], [place], [address], [place] tel:[phone] [facility] UTI (chief complaint) Urinary Tract Infection 4 Gamboa Titus. [address], [place], [place], [address] , [place]. tel:[phone] Referring Provider: Jesse Cannon [address], [place], [place], [address]. tel:[phone] OFFICE/OUTPA TIENT VISIT, [facility], [address], [place], [place], [address], [place] tel:[phone] [facility] fibromyalgia (chief complaint)insom stella (chief complaint)hypot hyroidism (chief complaint) Myalgia and myositis, unspecifiedFat igue / MalaiseInsomni a, OtherOther specified acquired hypothyroidism 4 Cooper Qureshi. [address], [place], [place], [address] , [place]. tel:[phone] Referring Provider: Jesse Cannon [address], [place], [place], [address]. tel:[phone] OFFICE/OUTPA TIENT VISIT, [facility], [address], [place], [place], [address], [place] tel:[phone] [facility] insomnia (chief complaint)fatig ue (chief complaint)hypot hyroidism (chief complaint)heada sam (chief complaint) Insomnia, OtherFatigue / MalaiseHypothy roidismHeadach e 4 Cooper Aquino [address], [place], [place], [address] , [place]. tel:[phone] Referring Provider: Jesse Cannon [address], [place], [place], [address]. tel:[phone] OFFICE/OUTPA TIENT VISIT, [facility], [address], [place], [place], [address], [place] tel:[phone] [facility] weight gain (chief complaint)skin change (chief complaint)pain (chief complaint)heada sam (chief complaint) Dietary surveillance and counselingPain in joint involving multiple sitesAbnormal weight gainHypothyroi dismRash and other nonspecific skin eruption 4 Cooper Qureshi. [address], [place], [place], [address] , [place]. tel:[phone] Referring Provider: Jesse Cannon [address], [place], [place], [address]. tel:[phone] PREV VISIT, EST, AGE 40-64 [facility], [address], [place], [place], [address], [place] [phone] [facility] Physical (chief complaint) Routine Medical ExamOther specified acquired hypothyroidism Other and unspecified hyperlipidemia Other specified types of cystitisRoutin e Medical Exam 4 Cooper Qureshi. [address], [place], [place], [address] , [place]. [phone] Referring Provider: Jesse Cannon [address], [place], [place], [address]. tel:[phone] OFFICE/OUTPA TIENT VISIT, EST [facility], [address], [place], [place], [address], [place] [phone] [facility] postmeno (chief complaint)HLP (chief complaint)Hypot hryoidism (chief complaint) Menopausal DisorderHypoth yroidismOther and unspecified hyperlipidemia 3 Cooper Qureshi. [address], [place], [address] , [place]. tel:[phone] Referring Provider: Jesse Cannon [address], [place], [place], [address]. tel:[phone] OFFICE/OUTPA TIENT VISIT, EST [facility], [address], [place], [place], [address], [place] tel:[phone] [facility] perimeno symptoms (chief complaint)ortho (chief complaint) Menopausal DisorderPain in joint involving lower leg 3 Cooper Qureshi. [address], [place], [place], [address] , [place]. tel:[phone] Referring Provider: Titus Gamboa, [address], [place], [place], [address]. tel:[phone] OFFICE/OUTPA TIENT VISIT, [facility], [address], [place], [place], [address], [place] tel:[phone] [facility] fatigue (chief complaint)knee cap cyst (chief complaint) Fatigue / MalaiseOther specified acquired hypothyroidism Ganglion of joint 3 Cooper Qureshi. [address], [place], [place], [address] , [place]. [phone] Referring Provider: Jesse Cannon [address], [place], [place], [address]. tel:[phone] OFFICE/OUTPA TIENT VISIT, [facility], [address], [place], [place], [address], [place] [phone] [facility] intertial cystitis (chief complaint)hypot hyroidism (chief complaint)HLP (chief complaint) Other chronic cystitisOther specified acquired hypothyroidism Other and unspecified hyperlipidemia 3 Cooper Qureshi. [address], [place], [place], [address] , [place]. [phone] Referring Provider: Jesse Cannon [address], [place], [place], [address]. tel:[phone] OFFICE/OUTPA TIENT VISIT, [facility], [address], [place], [place], [address], [place] tel:[phone] [facility] Hyperthyroidism (chief complaint)gluco se (chief complaint)vitam in D (chief complaint) Hypothyroidism HyperglycemiaU nspecified vitamin d deficiency 3 Cooper Qureshi. [address], [place], [place], [address] , [place]. tel:[phone] Referring Provider: Jesse Cannon [address], [place], [place], [address]. tel:[phone] PREV VISIT, EST, AGE 40-64 [facility], [address], [place], [place], [address], tel:[phone] [facility] Physical (chief complaint) Routine Medical ExamHypothyroi dismAcute cystitisOther and unspecified hyperlipidemia Routine Medical Exam 3 Cooper Qureshi. [address], [place], [place], [address] , [place]. tel:[phone] Referring Provider: Jesse Cannon [facility], [place], [place], [address]. tel:[phone] OFFICE/OUTPA TIENT VISIT, [facility], [address], [place], [place], [address], [place] tel:[phone] [facility] hypothyroidism (chief complaint)fasti adryan (chief complaint)cysti tis (chief complaint)cough (chief complaint) Other specified acquired hypothyroidism Other chronic cystitisBronch itis, Acute 2 Cooper Qureshi. [address], [place], [place], [address] , [place]. tel:[phone] Referring Provider: Jesse Cannon [facility], [place], [place], [address]. tel:[phone] OFFICE/OUTPA TIENT VISIT, [facility], [address] [place], [address], [place] tel:[phone] [facility] hypothyroidism (chief complaint)sinus infection (chief complaint) Other specified acquired hypothyroidism Fatigue / MalaiseSinusit is, Acute 2 oCoper Qureshi. [address], [place], [place], [address] , [place]. tel:[phone] Referring Provider: Jesse Cannon [address] [facility], [place], [place], [address]. tel:[phone] Family History Family Member Type Diagnosis Age [...] dysuria chronically and she was referred to [facility] urology twice and she told me she [...] without hematuria) ordered Referral Referred To: Sonny Arroila [address] [facility]
[address] [place], [place], [phone] Ordered: Referrals: Allopathic & Osteopathic Physicians : [...] Date Complaint History Of Prese nt Illness anxiety1 Pt has chronic a nxiety and depression Pt takes cymbalta and doing ok .Pt denies any suicidal or homicidal thought Pt denies any crying spells. Pt needs cymbalta refilled. IC Pt has intersiti al cystitis. her previous urology left and she has been dealing with urinary urgency, dysuria chronically and she was referred to [facility] urology twice and she told me she never heard from urology. HLP Pt has HLP Pt lyle s been out of lipitor. Pt denies any myalgia migraine1 Pt has chronic m igraine. Pt denies any acute headache. Pt has headache 1-2 per month Pt does not want daily prophylactic meds Pt takes maxalt PRn an doing ok. Pt had normal MRI of brain per pt. Pt denies any worsening headache ,Pt denies any head injury or waking up at night with headache . GERD Pt has GERD. Pt takes pepcid [...] but GI insisted that she make meche migraine Pertinent negati ves include memory impairment or vomiting. Additional information: Pt has fibromyalgia. Pt is noncompliant with lyrica and she is off lyrica for long time Pt takes neurontin and ultram PRN and she still has poorly controlled pain. platelet1 Pt has high plat elet and [...] Pt had negative rheumatological work up sinus infection1 Pt c/o sinus pa in, postnasal drainage, purulent sinus drainage, mild sore throat for 2 days ,Pt denies any fever, headache, cough, sob. Pt denies any GI symptoms. Pt denies any loss of taste and smell sinus infection physical Pt needs annual physical. Pt has [...] months. Pt denies any fever or recent travel service consultant denies any sick contact pt feels that her sinus is always congested HLP Pt has HLP. Pt t akes 40 mg lipitor. her cholesterol is still bad. Pt denies any myalgia. Pt is not on any diet hematuria1 Pt has IC with h ematuria pt sees urology Pt denies any UTi symptoms or back pain osteopenia1 Pt has osteopeni a. pt denies any fracture. pt is postmeno. Pt does have low D thrombocytosis1 Pt has mildly hi gh platelet Pt denies any bleeding GERD1 Pt has GERD, Pt takes omeprazole. Pt states that she still needs to use abdulkadir a lot. Pt denied any abd pain thyroid1 pt has low thyro id. Pt takes synthroid. Ultrasound ok. pt denies any dysphagia GERD1 Pt states that z antac is not helping. Pt has daily GERD ,Pt denies any nausea, vomiting, diarrhea anxiety1 Pt has chronic a nxiety and depression Pt takes cymbalta and doing ok. Pt denies any suicidal thought. Pt denies any crying spells HLP Pt has HLP Pt ta kes lipitor 40 mg daily Pt denies any myalgia. GERD1 Pt has been havi ng GERD symptoms daily for the past several weeks. Pt has been taking tums daily. Pt denies any nausea, vomiting, diarrhea, or abdominal pain HLP Pt needs refill of lipitor. Pt denies any myalgia bone density Pt is postmenopa usal for several years. Pt never had bone density. Pt denies any fracture colonoscopy1 Pt states that s he went for her colonoscopy but the procedure was terminated due to poor cleaning of her bowels and she became frustrated and she does not want to do it anymore? Pt denies any GI issue copd1 Pt has COPD acco rding to her PFt from previous MD. Pt denies any sob, Pt denies any coughing or hemoptysis Pt supposes to have LDCT done but she did not get it done HLP pt is on lipitor . Pt is not sure if she is on 40 mg of lipitor? Pt told me she thinks she is on 40 mg lipitor Her lipid profile was high 6 months ago Pt is not on any diet colitis1 Pt has ? colitis on Ct scan pt denies any GI issue Pt has appointment with colonoscopy soon thyroidism1 Pt has low thyro id. Pt takes synthroid. Her TSH is ok. Pt just had normal thyroid ultrasound Pt denies any dysphagia cataract1 Pt has cataract and she needs surgery soon and she needs clearance. Pt will undergo right eye surgery under [facility] sinus1 Pt c/o purulent sinus drainage, sore [...] o Body mass index (BMI) 26.0-26.9, adult Avoid provocative fo ods: citrus, alcohol, coffee, chocolate, mints. Related to GERD w/o esophagitis Eat smaller meals, n o eating three hours prior to bedtime. Related to GERD w/o esophagitis Elevate head of bed prior to sle ep. Related to GERD w/o esophagitis Special diet education Related t o Body mass index (BMI) 26.0-26.9, adult Special diet education Related t o Body mass index (BMI) 36.0-36.9, adult Stop smoking Related to Fibro myalgia [...] Mental Status Date Cognitive Assessment Orientation - [place] ed to time, place, person, situation.
--- OUTSIDE RECORDS SUMMARY | 2024-11-24 12:46 | XMS_ITS | Clinical Summary ---
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 Gender Identity Female 09/21/2022 6:44 PM CDT Sexual Orientation Straight 09/21/2022 6: 44 PM CDT Obstetrics History Last Filed Vital Signs Vital Sign Reading Time Taken Comments Blood Pressure 135/90 10/01/2023 2:43 PM CDT Pulse 89 10/01/2023 2:43 PM CDT Temperature 37.1 C (98.8 F) 04/01/2023 11:37 AM PUBLIC SPEAKING COACH Respiratory Rate 18 10/01/2023 2:43 PM CDT Oxygen Saturation 95% 10/01/2023 2:43 PM CDT room air Inhaled Oxygen Concentration - - Weight 68 kg (150 lb) 04/02/2024 11:58 AM PUBLIC SPEAKING COACH Height 157.5 cm (5' 2) 04/02/2024 11:58 AM PUBLIC SPEAKING COACH Body Mass Index 27.44 04/02/2024 11:58 AM PUBLIC SPEAKING COACH Plan of Treatment Health Maintenance Due Date Last Done Comments Breast Cancer Screening-Mammogram 1959 Colon Cancer Screening-Colonoscopy 1959 Depression Screening 1959 Hepatitis C Screening 1959 Osteoporosis Screening-Bone Density Scan 1959 DTaP/Tdap/Td Vaccine (1 - Tdap) 1970 Hepatitis B Screening 1977 Pneumococcal vaccine 65+ (1 of 2 - PCV) 1978 Zoster Vaccine (1 of 2) 2009 Fall Risk Assessment 09/27/2023 09/26/2022, 09/03/19 23 Covid-19 Vaccine ( season) 2024 05/21/2021, 11/15/2020, 10/18/2020 Well Visit 65+ 01/18/2024 Lung Cancer Screening 10/14/2024 10/14/2023 Influenza Vaccine (#1) 2025 Medical Devices Implanted Type Area [employer]ing [employer] Device Identifier Shelf Expiration Date Model / Serial / Lot [place] Craniomaxillofacial Un3 1.5mm 4mm Self Drill Craniomaxillofacial Screw Bone [id number] - [id number] Implanted:Qty: 35 on 08/27/2022 by Lee Sarah MD at [facility] N/A: Cranial [employer] Craniomaxillofacial [id number] / / [employer] Craniomaxillofacial Medpor 7mm Tab Low Profile Cover [place] Hole Titanium Sterile [id number] - [id number] Implanted:Qty: 4 on 08/27/2022 by Lee Sarah MD at [facility] N/A: Cranial [place] Craniomaxillofacial [id number] / / Mary Alice Craniomaxillofacial [place] Neuro Iii .4mm 2 Hole Low Profile Bar Tab [id number] - [id number] Implanted:Qty: 2 on 08/27/2022 by Lee Sarah MD at [facility] N/A: Cranial [employer] Craniomaxillofacial [id number] / / [employer] Craniomaxillofacial [place] Neuro Iii 10mm Tab Craniomaxillofacial Low Profile [id number] - [id number] Implanted:Qty: 2 on 08/27/2022 by Lee Sarah MD at [facility] N/A: Cranial [employer] Craniomaxillofacial [id number] / / Procedures Procedure Name Priority Date/Time [...] screening) Electronically signed by: Sheyla Blount M.D. [facility] Christi Sanders MD IM CT PROCEDURES Final Result from Last 3 Months or Most Recently Relevant to Health Maintenance Insurance ID[employer] MEDICARE HMO HU[employer] CHOICE MEDICARE PPO Advance Directives For more information, please contact: [phone] Documents on File Type Date Recorded Patient Gang Tailer Expl anation ADVANCE DIRECTIVE 08/29/2022 2:02 PM POWER OF GROUP CHIEF OPERATOR-MEDICAL * Full Code (Latest Code Status on File) Date Activated Date Inactivated Comments 08/27/2022 7:13 PM 09/03/2022 4:16 PM Healthcare Agents on File Name Relationship Healthcare Agent [facility] Communication Reed Dykes [facility] Health Care Agent Care Teams Motor Vehicle Representative Relationship Specialty Start Date End Date Linda Delvalle MD [address] [place] [address] [address] PCP - General Family Medicine 09/30/24 Juan Manuel Nunez MD Radiation Oncologist Radiation Oncology 11/04/22
[2024-11-24 19:25] LABS: Hematocrit 41.5 % (37.0-47.0); Hemoglobin 13.1 g/dL (12.0-15.0); Immature Granulocyte Percent A 0.5 % (0-0.5); Lymphocytes Absolute Auto 2.23 K/mm3 (0.9-3.2); Mean Corpuscular HGB Conc 31.6 g/dl (32-36); Mean Corpuscular Hemoglobin 29.0 pg (26-34); Mean Corpuscular Volume 91.8 fl (80-100); Nucleated Red Blood Cells Absolute Auto 0.000 K/mm3 (0.0-0.012); Nucleated Red Blood Cells Perc 0.0 % (0.0-0.2); Platelet Count Result 339 k/mm3 (150-375); Red Blood Count 4.52 M/mm3 (4.2-5.4); White Blood Count 12.3 K/mm3 (4.5-10.0)
[2024-11-24 19:40] LABS: Alanine Aminotransferase 19 U/L (6-35); Albumin Level 4.4 g/dL (3.5-5.1); Alkaline Phosphatase 110 U/L (38-126); Anion Gap 8 mmol/L (4-12); Aspartate Amino Transferase 41 U/L (14-36); Bilirubin,Total 0.4 mg/dL (0.2-1.3); Blood Urea Nitrogen 14 mg/dL (7-17); Calcium 10.9 mg/dL (8.4-10.2); Carbon Dioxide 26 mmol/L (22-30); Chloride 103 mmol/L (98-107); Cholesterol 185 mg/dL (0-200); Estimated Glomerular Filt Rate 45; Glucose 95 mg/dL (65-110); HDL Direct 49 mg/dL; Potassium 4.4 mmol/L (3.4-5.0); Sodium 137 mmol/L (137-145); Total Protein 7.4 g/dL (6.3-8.2); Triglycerides 140 mg/dL (<150)
[2024-11-24 19:55] LABS: Parathyroid Intact 69.7 pg/mL (14.5-75.2)
[2024-11-24 20:10] LABS: Thyroid Stimulating Hormone 4.630 uIU/mL (0.465-4.680)
== END 2024-11-24 12:43 | disposition home or self-care (01) ==
LOC: ANHGOSHLAB 12:43
PROVIDERS: PCP Family Medicine; Visit Provider Student in an Organized Health Care Education/Training Program
DX: N18.31 Chronic kidney disease, stage 3a (principal); E21.3 Hyperparathyroidism, unspecified; E78.2 Mixed hyperlipidemia; E03.9 Hypothyroidism, unspecified; Z11.59 Encounter for screening for other viral diseases
CPT/HCPCS: 36415; 80053; 80061; 83970; 84443; 85025; 86803